=== PATIENT | female | born 1980 | race African-American/Black ===

== ENCOUNTER 2020-05-06 08:50 | Outpatient (REF) | payer OTHER, SELFPAY ==
[2020-05-06 10:21] LABS: MANUAL DIFF FLAG NO
[2020-05-06 10:45] LABS: Basophils Absolute Auto 0.1 X10*3/uL (0.0-0.2); Basophils Percent Auto 0.7 % (0-2); Eosinophils Absolute Auto 0.1 X10*3/uL (0.0-0.4); Eosinophils Percent Auto 1.6 % (0-4); Hematocrit 38.5 % (37-47); Imm Gran Abs Auto 0.02 X10*3/uL (0.00-0.03); Imm Gran Pct Auto 0.2 % (0.0-0.4); Lymphocytes Absolute Auto 1.6 X10*3/uL (1.2-4.9); Lymphocytes Percent Auto 18.3 % (20-40); Mean Corpuscular HGB Conc 33.8 g/dl (31.0-35.0); Mean Corpuscular Hemoglobin 28.7 pg (27.0-33.0); Mean Platelet Volume 12.2 fL (9.4-12.3); Monocytes Absolute Auto 0.4 X10*3/uL (0.1-1.2); Neutrophils Absolute Auto 6.6 X10*3/uL (2.0-8.3); Neutrophils Percent Auto 75.2 % (45-73); Platelet Count 256 X10*3/uL (160-400); Red Blood Count 4.53 X10*6/uL (4.20-5.50); Red Cell Distribution Width 13.3 % (11.0-16.0); White Blood Count 8.8 X10*3/uL (4.8-10.8)
[2020-05-06 11:10] LABS: Estimated Average Glucose 312 mg/dL; Hemoglobin A1c % 12.5 %
[2020-05-06 11:18] LABS: Anion Gap 14 (12-20); Carbon Dioxide 24 mmol/L (22-29); Chloride 102 mmol/L (96-108); Potassium 4.7 mmol/l (3.3-5.1); Sodium 135 mmol/L (135-145)
[2020-05-06 11:19] LABS: Alanine Aminotransferase 13 U/L (0-31); Albumin Level 4.2 g/dL (3.5-5.0); Alkaline Phosphatase 144 U/L (39-117); Aspartate Amino Transferase 11 U/L (5-31); Bilirubin Total 0.3 mg/dL (0.0-1.0); Blood Urea Nitrogen 19 mg/dL (9-16); C Reactive Protein 0.18 mg/dL (< or = 0.50); Calcium 9.4 mg/dL (8.4-10.2); Estimated Glomerular Filt Rate 60; Lipase 17 U/L (8-78); Total Protein 7.4 g/dL (6.5-8.0)
[2020-05-06 11:39] LABS: Free T4 (Free Thyroxine) 0.87 ng/dL (0.71-1.85)
[2020-05-06 11:50] LABS: Glucose Fasting 473 mg/dL (60-99)
[2020-05-06 12:17] LABS: Vitamin B12 806 pg/mL (200-900)
[2020-05-09 20:11] LABS: Glutamic acid decarboxylase Ab <5 IU/mL (<5)
== END 2020-05-06 08:51 | disposition home or self-care (01) ==
LOC: HO.10HDL 08:50
PROVIDERS: Visit Provider Internal Medicine
DX: R63.4 Abnormal weight loss (principal); E11.9 Type 2 diabetes mellitus without complications; M79.7 Fibromyalgia; R25.1 Tremor, unspecified
CPT/HCPCS: 36415; 80053; 82607; 83036; 83690; 84439; 85025; 86140; 86341

== ENCOUNTER 2020-06-26 11:17 | Emergency (ER) | payer OTHER, SELFPAY ==
[2020-06-26] VITALS (13 sets, daily range): BP systolic 75–121; BP diastolic 40–80; PULSE 69–89; RESP 14–18; TEMP 36.9–37.2; O2SAT 95–100; BMI 26.6
--- NOTE | 2020-06-26 11:33 | ECG_ITS ---
Test Reason : DIZZY Blood Pressure : / mmHG Vent. Rate : 070 BPM Atrial Rate : 070 BPM P-R Int : 142 ms QRS Dur : 070 ms QT Int : 388 ms P-R-T Axes : 067 069 072 degrees QTc Int : 419 ms Normal sinus rhythm Normal ECG When compared with ECG of 15-DEC-2018 13:06, Nonspecific T wave abnormality no longer evident in Inferior leads Referred By: Nancy Traylor Electronically Signed By:GABRIELLA NEGRON
--- NOTE | 2020-06-26 11:34 | XR_ITS ---
EXAMINATION: XR CHEST CLINICAL INFORMATION: Weakness. COMPARISON: None TECHNIQUE: Frontal view of the chest was obtained. FINDINGS: No significant abnormality is noted involving the heart, lungs, mediastinum, bony thorax or soft tissues. XR/XR chest 1V IMPRESSION: Unremarkable chest examination.
--- NOTE | 2020-06-26 11:34 | ED.DIZZY ---
HPI - Dizziness General Chief Complaint: Dizziness Stated Complaint: LOW BLOOD PRESSURE Time Seen by Provider: 06/26/20 11:33 Source: patient Mode of arrival: ambulatory Limitations: no limitations History of Present Illness MD elicited complaint: dizziness, near syncope and other (BP at home 84 at PCP 60/40) Pertinent past history: other (hx of heavy menstrual bleeding) Onset (ago): hour(s) (few) Timing: gradual onset and intermittent Severity: moderate Description: lightheadedness Exacerbating factors: change in body position Relieving factors: remaining still Associated symptoms: weakness and other (headache) Related Data Previous Rx's Medication Instructions Recorded [id number]-[id number] 2 tab PO Q6H PRN #14 tab 06/26/20 cyclobenzaprine 10 mg PO TID PRN #14 tab 06/26/20 ondansetron 4 mg PO Q8H PRN #20 tab 06/26/20 Allergies Allergy/AdvReac Type Severity Reaction Status Date / Time gabapentin [GABAPENTIN] Allergy Severe DYSURIA Unverified 04/02/20 16:50 topiramate [From TOPAMAX] Allergy Severe AUDITORY Unverified 04/02/20 16:50 HALLUCINATIONS amitriptyline Allergy Unknown Unknown Verified 04/29/20 11:08 FentaNYL HCl Allergy Unknown Unknown Uncoded 04/29/20 11:08 NSAIDS Allergy Unknown Unknown Uncoded 04/29/20 11:08 Review of Systems Review of Systems: Constitutional : No Fever, No Chills, No Fatigue ENT/Mouth : No sore throat, No Rhinorrhea Eyes: No Eye Pain, No Swelling, No Redness Cardiovascular : No Chest Pain, No SOB, No Dyspnea on Exertion Respiratory : No Cough, No Sputum Gastrointestinal : No Nausea, No Vomiting, No Diarrhea, No abdominal Pain Genitourinary : No Dysuria, No Urinary Frequency, No Hematuria, Musculoskeletal : No joint pain, No Myalgias, No Joint Swelling Skin : No Skin Lesions, No rash Neuro : No Weakness, No Numbness, pos Dizziness, positive Headache Psych : No Anxiety/Panic, No Depression Heme/Lymph: No Bruising, No Bleeding,No Lymphadenopathy Endocrine : No Polyuria, No Polydipsia All other systems reviewed and are negative PMFSH Past Medical History Attestation statement: The following information was validated with the patient. Medical History Diabetes mellitus type 2, controlled Gastroparesis Migraine Neuropathy PVC (premature ventricular contraction) Tachycardia Surgical History History of appendectomy History of section History of inguinal hernia repair Family History Family History (Updated 04/29/20 @ 11:10 by INGA Quinteros) Mother History of hypertension Paternal Grandmother History of ovarian cancer Social History Social History Alcohol intake: never Smoking Status: Never smoker Use of substances other than those prescribed or required for medical reasons: Yes Substance Use Type: Marijuana Substance Use Frequency: Daily Last Used Substance: Days (ago) Advance Directives: No Advance Directives Information Provided: No Physical Exam Vital Signs: Vital Signs: Last Vital Signs Temp 98.5 F 06/26/20 15:33 Pulse 69 06/26/20 16:00 Resp 16 06/26/20 16:22 BP 104/64 06/26/20 16:00 Pulse Ox 98 06/26/20 16:00 Body Mass Index 26.6 Appearance: Alert. Oriented X3. No acute distress. Eyes: Pupils equal, round and reactive to light. ENT: Pharynx normal. Neck: Normal inspection. Neck supple. CVS: Normal heart rate and rhythm. Pulses normal. Respiratory: No respiratory distress. Breath sounds normal. Abdomen: Soft and non-tender. Skin: Skin warm and dry. pale skin color. Normal skin turgor. Extremities: No lower extremity edema. No calf ttp Neuro: Oriented X 3. No motor deficit. No sensory deficit. Course Course Course Narrative: still c/o slight headache and dizziness, CT head ordered, PO medications patient c/o headache has had headaches before at this time will give reglan/benadryl/morphine and reassess, seems like it could be a migraine no fevers, no meningeal signs to suggest meningitis patient feeling better at this time, if improved with treatments anticipate DC home signed out to Dr. Rodriguez pending improvement Procedures EJ/Peripheral Line Neck R: Time Out Performed: Yes Skin Cleansed in Sterile Fashion: Yes Size (gauge): 18 IV Secured and Dressing Applied: Yes Patient Tolerated Procedure: well MDM - Dizziness MDM Narrative Medical decision making narrative: 39 yo female with DM here with dizziness and low BPs at home, reports good PO intake, recent heavy period also felt some brief CP she is PERC negative - will need labs, IVF, ortho VS, ekg, troponin, normal neuro exam, dispo pe results and findings. Lab Data Result diagrams: 06/26/20 12:34 06/26/20 12:34 Labs: Lab Results 06/26/20 06/26/20 06/26/20 Range/Units 12:28 12:34 12:34 WBC 13.7 H (4.8-10.8) X10*3/uL RBC 4.12 L (4.20-5.50) X10*6/uL Hgb 11.9 L (12.0-16.0) g/dl Hct 34.8 L (37-47) % MCV 84.5 (80-98) fL MCH 28.9 (27.0-33.0) pg MCHC 34.2 (31.0-35.0) g/dl RDW 13.9 (11.0-16.0) % Plt Count 290 (160-400) X10*3/uL MPV 9.8 (9.4-12.3) fL Immature Gran % (Auto) 0.4 (0.0-0.4) % Neut % (Auto) 81.3 H (45-73) % Lymph % (Auto) 13.8 L (20-40) % [place] % (Auto) 4.1 (2-11) % Eos % (Auto) 0.1 (0-4) % Baso % (Auto) 0.3 (0-2) % Lymph # (Auto) 1.9 (1.2-4.9) X10*3/uL [place] # (Auto) 0.6 (0.1-1.2) X10*3/uL Eos # (Auto) 0.0 (0.0-0.4) X10*3/uL Baso # (Auto) 0.0 (0.0-0.2) X10*3/uL Abs Immat Gran (auto) 0.05 H (0.00-0.03) X10*3/uL Absolute Neuts (auto) 11.2 H (2.0-8.3) X10*3/uL Absolute Nucleated RBC 0.000 (0.0-0.012) X10*3/uL Nucleated RBC % (auto) 0.0 (0.0-0.2) /100WBC Hold Blue Top Sodium 136 (135-145) mmol/L Potassium 4.6 (3.3-5.1) mmol/l Chloride 104 (96-108) mmol/L Carbon Dioxide 25 (22-29) mmol/L Anion Gap 12 (12-20) BUN 12 (9-16) mg/dL Creatinine 0.75 (0.5-1.4) mg/dL Estim Creat Clear Calc 89.8 Estimated GFR > 60 POC Glucose 82 (60-115) mg/dL Random Glucose 70 (60-115) mg/dL Lactic Acid (0.5-2.0) mmol/L Calcium 9.2 (8.4-10.2) mg/dL Magnesium (1.6-2.6) mg/dL Total Bilirubin (0.0-1.0) mg/dL Direct Bilirubin (0.0-0.5) mg/dL AST (5-31) U/L ALT (0-31) U/L Alkaline Phosphatase (39-117) U/L Troponin I High Sens (<3.5-17.0) ng/L Total Protein (6.5-8.0) g/dL Albumin (3.5-5.0) g/dL Lipase (8-78) U/L Urine Color Urine Appearance Urine pH (5.0-8.0) Ur Specific [place] (1.005-1.025) Urine Protein (NEG-TRACE) MG/DL Urine Glucose (UA) (NEG) MG/DL Urine Ketones (NEG) MG/DL Urine Blood (NEG) Urine Nitrite (NEG) Ur Leukocyte Esterase (NEG) Urine RBC (0) /HPF Urine WBC (0-4) /HPF Ur Squamous Epith Cells /LPF Urine Bacteria /LPF Urine Test (NEGATIVE) 06/26/20 06/26/20 06/26/20 Range/Units 12:34 12:34 12:34 WBC (4.8-10.8) X10*3/uL RBC (4.20-5.50) X10*6/uL Hgb (12.0-16.0) g/dl Hct (37-47) % MCV (80-98) fL MCH (27.0-33.0) pg MCHC (31.0-35.0) g/dl RDW (11.0-16.0) % Plt Count (160-400) X10*3/uL MPV (9.4-12.3) fL Immature Gran % (Auto) (0.0-0.4) % Neut % (Auto) (45-73) % Lymph % (Auto) (20-40) % [place] % (Auto) (2-11) % Eos % (Auto) (0-4) % Baso % (Auto) (0-2) % Lymph # (Auto) (1.2-4.9) X10*3/uL [place] # (Auto) (0.1-1.2) X10*3/uL Eos # (Auto) (0.0-0.4) X10*3/uL Baso # (Auto) (0.0-0.2) X10*3/uL Abs Immat Gran (auto) (0.00-0.03) X10*3/uL Absolute Neuts (auto) (2.0-8.3) X10*3/uL Absolute Nucleated RBC (0.0-0.012) X10*3/uL Nucleated RBC % (auto) (0.0-0.2) /100WBC Hold Blue Top SEE NOTE Sodium (135-145) mmol/L Potassium (3.3-5.1) mmol/l Chloride (96-108) mmol/L Carbon Dioxide (22-29) mmol/L Anion Gap (12-20) BUN (9-16) mg/dL Creatinine (0.5-1.4) mg/dL Estim Creat Clear Calc Estimated GFR POC Glucose (60-115) mg/dL Random Glucose (60-115) mg/dL Lactic Acid 1.0 (0.5-2.0) mmol/L Calcium (8.4-10.2) mg/dL Magnesium 2.0 (1.6-2.6) mg/dL Total Bilirubin 0.6 (0.0-1.0) mg/dL Direct Bilirubin 0.2 (0.0-0.5) mg/dL AST 12 (5-31) U/L ALT 13 (0-31) U/L Alkaline Phosphatase 85 D (39-117) U/L Troponin I High Sens (<3.5-17.0) ng/L Total Protein 6.9 (6.5-8.0) g/dL Albumin 4.0 (3.5-5.0) g/dL Lipase 9 (8-78) U/L Urine Color Urine Appearance Urine pH (5.0-8.0) Ur Specific [place] (1.005-1.025) Urine Protein (NEG-TRACE) MG/DL Urine Glucose (UA) (NEG) MG/DL Urine Ketones (NEG) MG/DL Urine Blood (NEG) Urine Nitrite (NEG) Ur Leukocyte Esterase (NEG) Urine RBC (0) /HPF Urine WBC (0-4) /HPF Ur Squamous Epith Cells /LPF Urine Bacteria /LPF Urine Test (NEGATIVE) 06/26/20 06/26/20 06/26/20 Range/Units 12:34 13:46 13:46 WBC (4.8-10.8) X10*3/uL RBC (4.20-5.50) X10*6/uL Hgb (12.0-16.0) g/dl Hct (37-47) % MCV (80-98) fL MCH (27.0-33.0) pg MCHC (31.0-35.0) g/dl RDW (11.0-16.0) % Plt Count (160-400) X10*3/uL MPV (9.4-12.3) fL Immature Gran % (Auto) (0.0-0.4) % Neut % (Auto) (45-73) % Lymph % (Auto) (20-40) % [place] % (Auto) (2-11) % Eos % (Auto) (0-4) % Baso % (Auto) (0-2) % Lymph # (Auto) (1.2-4.9) X10*3/uL [place] # (Auto) (0.1-1.2) X10*3/uL Eos # (Auto) (0.0-0.4) X10*3/uL Baso # (Auto) (0.0-0.2) X10*3/uL Abs Immat Gran (auto) (0.00-0.03) X10*3/uL Absolute Neuts (auto) (2.0-8.3) X10*3/uL Absolute Nucleated RBC (0.0-0.012) X10*3/uL Nucleated RBC % (auto) (0.0-0.2) /100WBC Hold Blue Top Sodium (135-145) mmol/L Potassium (3.3-5.1) mmol/l Chloride (96-108) mmol/L Carbon Dioxide (22-29) mmol/L Anion Gap (12-20) BUN (9-16) mg/dL Creatinine (0.5-1.4) mg/dL Estim Creat Clear Calc Estimated GFR POC Glucose (60-115) mg/dL Random Glucose (60-115) mg/dL Lactic Acid (0.5-2.0) mmol/L Calcium (8.4-10.2) mg/dL Magnesium (1.6-2.6) mg/dL Total Bilirubin (0.0-1.0) mg/dL Direct Bilirubin (0.0-0.5) mg/dL AST (5-31) U/L ALT (0-31) U/L Alkaline Phosphatase (39-117) U/L Troponin I High Sens < 3.5 (<3.5-17.0) ng/L Total Protein (6.5-8.0) g/dL Albumin (3.5-5.0) g/dL Lipase (8-78) U/L Urine Color YELLOW Urine Appearance CLEAR Urine pH 7.0 (5.0-8.0) Ur Specific [place] <= 1.005 (1.005-1.025) Urine Protein NEG (NEG-TRACE) MG/DL Urine Glucose (UA) >=1000 H (NEG) MG/DL Urine Ketones NEG (NEG) MG/DL Urine Blood NEG (NEG) Urine Nitrite NEG (NEG) Ur Leukocyte Esterase NEG (NEG) Urine RBC 0 (0) /HPF Urine WBC 0-2 (0-4) /HPF Ur Squamous Epith Cells TRACE /LPF Urine Bacteria TRACE /LPF Urine Test NEGATIVE (NEGATIVE) ECG Data Attestation: I personally reviewed and interpreted this ECG as follows: ECG interpretation date: 06/26/20 ECG interpretation time: 12:40 Interpretation: Rate: 70 Rhythm: NSR [place]: normal Normal P waves. Normal JAMA. Normal QRS complex. ST T wave : normal , no TOM qTC: normal prior studies: no acute ischemia The study has been interpreted contemporaneously by me. . Discharge Plan Discharge Clinical Impression: Orthostatic hypotension Migraine Qualifiers: Migraine type: unspecified Status migrainosus presence: without status migrainosus Intractability: not intractable Qualified Code(s): G43.909 - Migraine, unspecified, not intractable, without status migrainosus Instructions: Acute Headache (ED), Hypotension (ED) Additional Instructions: return to ED for any worsening symptoms or concerns Prescriptions: New cyclobenzaprine 10 mg tablet 10 mg PO TID PRN (Reason: muscle spasm) Qty: 14 RF: 0 [id number]-bddfnefyygany-kfdl 50-325-40 mg tablet 2 tab PO Q6H PRN (Reason: pain) Qty: 14 RF: 0 ondansetron 4 mg tablet,disintegrating 4 mg PO Q8H PRN (Reason: nausea and vomiting) Qty: 20 RF: 0 Referrals: Francis Jasso MD [Primary Care Provider] - 2 days (Monday) Stand Alone Forms: Work/School Release
[2020-06-26] MEDS: 0.9 % Sodium Chloride 1,000 ML 999 ML IVCONT ×4 (12:36→18:39)
--- NOTE | 2020-06-26 12:37 | PC.NURSE ---
Delayed bolus administration r/t difficult to obtain IV access. R. ANDERSON placed by provider.
[2020-06-26 12:41] LABS: MANUAL DIFF FLAG NO
[2020-06-26 12:42] LABS: Basophils Percent Auto 0.3 % (0-2); Eosinophils Percent Auto 0.1 % (0-4); Hematocrit 34.8 % (37-47); Hemoglobin 11.9 g/dl (12.0-16.0); Imm Gran Abs Auto 0.05 X10*3/uL (0.00-0.03); Imm Gran Pct Auto 0.4 % (0.0-0.4); Lymphocytes Absolute Auto 1.9 X10*3/uL (1.2-4.9); Lymphocytes Percent Auto 13.8 % (20-40); Mean Corpuscular HGB Conc 34.2 g/dl (31.0-35.0); Mean Corpuscular Hemoglobin 28.9 pg (27.0-33.0); Mean Corpuscular Volume 84.5 fL (80-98); Mean Platelet Volume 9.8 fL (9.4-12.3); Monocytes Absolute Auto 0.6 X10*3/uL (0.1-1.2); Monocytes Percent Auto 4.1 % (2-11); Neutrophils Absolute Auto 11.2 X10*3/uL (2.0-8.3); Neutrophils Percent Auto 81.3 % (45-73); Platelet Count 290 X10*3/uL (160-400); Red Blood Count 4.12 X10*6/uL (4.20-5.50); Red Cell Distribution Width 13.9 % (11.0-16.0); White Blood Count 13.7 X10*3/uL (4.8-10.8)
[2020-06-26 12:45] LABS: Glucose, Whole Blood 82 mg/dL (60-115)
[2020-06-26 13:05] LABS: Anion Gap 12 (12-20); Blood Urea Nitrogen 12 mg/dL (9-16); Calcium 9.2 mg/dL (8.4-10.2); Carbon Dioxide 25 mmol/L (22-29); Chloride 104 mmol/L (96-108); Creatinine Clr Calc Pharmacy 89.8; Estimated Glomerular Filt Rate > 60; Glucose Random 70 mg/dL (60-115); Potassium 4.6 mmol/l (3.3-5.1); Sodium 136 mmol/L (135-145)
[2020-06-26 13:06] LABS: Alanine Aminotransferase 13 U/L (0-31); Alkaline Phosphatase 85 U/L (39-117); Aspartate Amino Transferase 12 U/L (5-31); Bilirubin Direct 0.2 mg/dL (0.0-0.5); Bilirubin Total 0.6 mg/dL (0.0-1.0); Lipase 9 U/L (8-78); Total Protein 6.9 g/dL (6.5-8.0)
[2020-06-26 13:13] LABS: Troponin-I High Sensitivity < 3.5 ng/L (<3.5-17.0)
[2020-06-26 13:55] LABS: Glucose Urine UA >=1000 MG/DL (NEG); Leukocyte Esterase Urine NEG (NEG); Nitrite Urine NEG (NEG); Specific Gravity - Urine <= 1.005 (1.005-1.025); Urine Blood NEG (NEG); Urine Ketones NEG (NEG); Urine Protein NEG (NEG-TRACE)
[2020-06-26 13:56] LABS: Appearance Urine CLEAR; Color Urine YELLOW
[2020-06-26 13:57] LABS: UPreg QC Valid YES; Urine Pregnancy NEGATIVE (NEGATIVE)
[2020-06-26 14:18] LABS: Bacteria Urine TRACE /LPF; RBC Urine 0 /HPF (0); Squamous Epithelial Cell Urine TRACE /LPF; WBC Urine 0-2 /HPF (0-4)
--- NOTE | 2020-06-26 14:41 | CT_ITS ---
EXAMINATION: CT BRAIN WITHOUT CONTRAST. CLINICAL INFORMATION: Headache and dizziness. COMPARISON: None TECHNIQUE: 5 mm thin and axial and reformatted 2 mm thin sagittal and coronal images of brain were obtained. FINDINGS: There is no acute intra-axial, extra-axial bleed, masses or midline shift. There is no acute infarction in evolution. The lateral ventricles are symmetrical in size and configuration. No evidence of ventricle megaly. Bone windows reveal no calvarial abnormality. Bilateral paranasal sinuses and mastoid air cells are well aerated. No scalp soft tissue swelling seen. CT/CT head/brain wo con IMPRESSION: No acute intracranial process seen.
[2020-06-26] MEDS: Meclizine HCl 25 MG TABLET PO (14:47)
[2020-06-26] MEDS: Acetaminophen 325 MG TABLET 650 MG PO (14:47)
--- NOTE | 2020-06-26 14:48 | PC.NURSE ---
Repeat orthos completed and improved however pt states continues headache/dizziness. New orders for Meclizine, APAP and CT scan
[2020-06-26] MEDS: Morphine Sulfate 4 MG/ML CARTRIDGE 2 MG IVPUSH (16:22)
[2020-06-26] MEDS: Metoclopramide HCl 10 MG/2 ML VIAL 5 MG IVPUSH (16:24)
[2020-06-26] MEDS: diphenhydrAMINE HCL 50 MG/ML VIAL 25 MG IVPUSH (16:24)
--- NOTE | 2020-06-26 16:27 | PC.NURSE ---
Pt continues with headache, states h/o migraines with needing er admit, meds given as ordered
[2020-06-26 19:23] LABS: Influenza A PCR NEGATIVE (Negative); Influenza B PCR NEGATIVE (Negative); Resp Syncy Virus RNA Qual PCR NEGATIVE (Negative); SARS COV2 PCR INHOUSE NEGATIVE (Negative)
[2020-06-26 19:32] LABS: Lactic Acid 0.9 mmol/L (0.5-2.0)
== END 2020-06-26 20:15 | disposition home or self-care (01) ==
PROVIDERS: Internal Medicine; Emergency Provider Emergency Medicine; PCP Internal Medicine
DX: I95.1 Orthostatic hypotension (principal); G43.909 Migraine, unspecified, not intractable, without status migrainosus; R42 Dizziness and giddiness; F12.90 Cannabis use, unspecified, uncomplicated; Z79.899 Other long term (current) drug therapy; Z20.828 Contact with and (suspected) exposure to other viral communicable diseases
CPT/HCPCS: 0241U; 36415; 70450; 71045; 80048; 80076; 81001; 81025; 82947; 83605; 83690; 83735; 84484; 85025; 87040; 93005; 96361; 96374; 96375; 99285; J1200; J2270; J2765

== ENCOUNTER 2021-02-11 14:52 | Emergency (ER) | payer OTHER, SELFPAY ==
--- NOTE | ~2021-02-11 | CT_ITS ---
EXAMINATION: CT HEAD WITHOUT CONTRAST CT CERVICAL SPINE WITHOUT CONTRAST CLINICAL INFORMATION: Headache and neck pain following fall. COMPARISON: CT head dated 06/26/2020. Cervical spine CT dated 07/12/2018. TECHNIQUE: Contiguous axial imaging was performed from the skull base to vertex without intravenous administration of contrast. Contiguous axial CT images of the cervical spine were obtained without contrast. Sagittal and coronal reformats were provided and reviewed. This CT examination was performed using dose optimization techniques as appropriate, variously including the following: *Automated exposure control *Adjustment of mA and/or kV according to patient size (this includes techniques or standardized protocols for targeted exams where dose is matched to indication/reason for exam; i.e. extremities or head) *Use of iterative reconstruction technique DLP: 1003 mGy-cm FINDINGS: HEAD: There is no evidence of acute intracranial hemorrhage or territorial infarction. No abnormal mass effect or midline shift is seen. [place] to white matter differentiation is well preserved. No extra-axial fluid collections are identified. The ventricles are normal in size. There is no abnormal attenuation within the brain parenchyma. The osseous structures and soft tissues are normal. The mastoid air cells and visualized portions of the paranasal sinuses are well aerated. CERVICAL SPINE: Mild reversal of the normal cervical lordosis, which may be positional or related to muscular spasm. No acute fracture or subluxation. No loss of vertebral body or intervertebral disc height. Unremarkable facet joints. No lytic or blastic osseous lesion. Unremarkable prevertebral soft tissues. No abnormal soft tissue mass or fluid collection. Thyroid within normal limits. Visualized lung apices are clear. No significant central canal or neural foraminal stenosis. CT/CT cervical spine wo con IMPRESSION: Head: No acute intracranial hemorrhage or mass effect. Cervical Spine: No acute fracture or subluxation. Mild reversal of the normal cervical lordosis, which may be positional or related to muscular spasm.
[2021-02-11 15:05] VITALS: BP 158/77; PULSE 101; RESP 18; TEMP 36.6; O2SAT 98; BMI 25.6
[2021-02-11 17:35] VITALS: BP 134/84; PULSE 66; RESP 16; TEMP 37.1; O2SAT 100
[2021-02-11 17:49] LABS: MANUAL DIFF FLAG NO
[2021-02-11 17:50] LABS: Basophils Absolute Auto 0.1 X10*3/uL (0.0-0.2); Basophils Percent Auto 0.5 % (0-2); Eosinophils Absolute Auto 0.2 X10*3/uL (0.0-0.4); Eosinophils Percent Auto 1.4 % (0-4); Hematocrit 40.1 % (37-47); Hemoglobin 13.2 g/dl (12.0-16.0); Imm Gran Abs Auto 0.04 X10*3/uL (0.00-0.03); Imm Gran Pct Auto 0.4 % (0.0-0.4); Lymphocytes Absolute Auto 1.7 X10*3/uL (1.2-4.9); Lymphocytes Percent Auto 15.8 % (20-40); Mean Corpuscular HGB Conc 32.9 g/dl (31.0-35.0); Mean Corpuscular Hemoglobin 27.1 pg (27.0-33.0); Mean Corpuscular Volume 82.3 fL (80-98); Mean Platelet Volume 10.1 fL (9.4-12.3); Monocytes Absolute Auto 0.4 X10*3/uL (0.1-1.2); Monocytes Percent Auto 3.4 % (2-11); Neutrophils Absolute Auto 8.6 X10*3/uL (2.0-8.3); Neutrophils Percent Auto 78.5 % (45-73); Platelet Count 246 X10*3/uL (160-400); Red Blood Count 4.87 X10*6/uL (4.20-5.50); Red Cell Distribution Width 16.1 % (11.0-16.0)
[2021-02-11 18:20] LABS: Anion Gap 16 (12-20); Blood Urea Nitrogen 14 mg/dL (9-16); Calcium 9.9 mg/dL (8.4-10.2); Carbon Dioxide 24 mmol/L (22-29); Chloride 105 mmol/L (96-108); Creatinine Clr Calc Pharmacy 79.8; Estimated Glomerular Filt Rate > 60; Glucose Random 153 mg/dL (60-115); Sodium 140 mmol/L (135-145)
[2021-02-11 19:04] VITALS: BP 150/87; PULSE 93; RESP 16; O2SAT 97
[2021-02-11] MEDS: Acetaminophen 325 MG TABLET 650 MG PO (19:29)
--- NOTE | 2021-02-11 20:02 | ED_ITS ---
HPI - Fall General Chief Complaint: Fall Stated Complaint: fall chest pain Time Seen by Provider: 02/11/21 17:46 Source: patient Mode of arrival: ambulatory Limitations: no limitations History of Present Illness HPI Narrative: 41-year-old female with history of type 1 diabetes she presents ambulatory via triage with complaint of states he had episode of low blood sugar yesterday where she administer her usual insulin and forgot to eat she subsequently fell to the ground family checked her blood sugar was 47 she was subsequently administered food and glucose improved. States this morning she woke up she has slight headache and neck pain feeling nauseated and sensitivity to light. Otherwise she states she has been eating and drinking well since. Has not had any further hypoglycemic episodes. MD complaint: fall Onset (ago): minute(s) Fall from: standing Fall witnessed: yes, by family Place fall occurred: home Loss of consciousness: yes Prolonged down time: no Symptoms prior to fall: none Location of injury: head Related Data Previous Rx's Medication Instructions Recorded cyclobenzaprine 10 mg tablet 10 mg PO TID PRN #14 tab 06/26/20 ondansetron 4 mg disintegrating 4 mg PO Q8H PRN #20 tab 06/26/20 tablet Allergies Allergy/AdvReac Type Severity Reaction Status Date / Time gabapentin [GABAPENTIN] Allergy Severe DYSURIA Verified 06/26/20 20:13 topiramate [From TOPAMAX] Allergy Severe AUDITORY Verified 06/26/20 20:13 HALLUCINATIONS amitriptyline Allergy Unknown Unknown Verified 06/26/20 20:13 FentaNYL HCl Allergy Unknown Unknown Uncoded 06/26/20 20:13 NSAIDS Allergy Unknown Unknown Uncoded 06/26/20 20:13 Review of Systems Review of Systems: Constitutional: No Weight loss, No Fever, No Chills, No Night Sweats, No Fatigue, No Malaise ENT/Mouth: No Hearing loss, No Ear Pain, No Nasal Congestion, No Sinus Pain, No Hoarseness, No sore throat, No Rhinorrhea, No Swallowing Difficulty Eyes: No Eye Pain, No Swelling, No Redness, No Foreign Body, No Discharge, No Vision Changes Cardiovascular: No Chest Pain, No SOB, No Dyspnea on Exertion, No Orthopnea, No Edema, No Palpitations Respiratory: No Cough, No Sputum, No Wheezing, No Smoke Exposure, No Dyspnea Gastrointestinal: No Nausea, No Vomiting, No Diarrhea, No Constipation, No abdominal Pain, No Hematochezia, No Melena Genitourinary: no irregular bleeding, No Dysuria, No Urinary Frequency, No Hematuria, No Urinary Incontinence, No Urgency, No Flank Pain, No Urinary Flow Changes, No Hesitancy Musculoskeletal: No joint pain, No Myalgias, No Joint Swelling Skin: No Skin Lesions, No rash Neuro: No Weakness, No Numbness, No Paresthesias, No Loss of Consciousness, No Dizziness, + Headache, photosensitivity Psych: No Social Issues Heme/Lymph: No Bruising, No Bleeding,No Lymphadenopathy Endocrine: No Polyuria, No Polydipsia, No Temperature Intolerance [facility] Past Medical History Medical History Diabetes mellitus type 2, controlled Gastroparesis Migraine Neuropathy PVC (premature ventricular contraction) Tachycardia Surgical History History of appendectomy History of section History of inguinal hernia repair Family History Family History (Updated 04/29/20 @ 11:10 by INGA Schultz) Mother History of hypertension Paternal Grandmother History of ovarian cancer Social History Social History Alcohol intake: never Use of substances other than those prescribed or required for medical reasons: No Substance Use Type: Marijuana Advance Directives: No Advance Directives Information Provided: No Patient : No Physical Exam Vital Signs: Vital Signs: Last Vital Signs Temp 98.7 F 02/11/21 17:35 Pulse 93 02/11/21 19:04 Resp 16 02/11/21 19:04 BP 150/87 H 02/11/21 19:04 Pulse Ox 97 02/11/21 19:04 Body Mass Index 25.6 Const: General: cooperative and healthy appearing; No acute distress or i ntoxicated appearing Nutritional Appearance: average body habitus Orientation/consciousness: patient oriented x3 HENMT: Head: Yes normal to inspection Ears: hearing grossly normal bilaterally Eyes: General: appearance normal, both eyes and all related structures Visual Mo: normal visual mo by confrontation Neck: Neck: Yes normal visual inspection, No positive Brudzinski's sign, No positive Kernig's sign and No tender Thyroid: Thyroid normal Chest: Chest palpation & inspection: normal inspection of the chest Resp: Effort & Inspection: normal respiratory effort Cardio: Jugular venous distension: no JVD Rate: regular rate Rhythm: regular rhythm Heart sounds: S1 normal heart sound present and S2 normal heart sound present GI: Inspection: Yes normal to inspection Percussion: Yes normal to percussion Auscultation: normal bowel sounds : General: Yes no CVA tenderness Back/Spine/Pelvis: Back: no CVA tenderness Skin: General skin exam: no rashes or lesions noted Neuro: General: patient oriented x3 Cranial nerves: Yes CN's II-XII intact bilaterally Cognition (Neuro): normal cognition Gait exam (Neuro): Normal gait present Motor exam (neuro): 5/5 motor strength present throughout Sensory Exam: Normal double simultaneous stimulation for sensation Extrem: General: Yes normal to inspection Course Reevaluation(s) Reevaluation #1: Labs overall reassuring, head and neck CT done results still pending patient states she would like to go home and have dinner she feels better. I reviewed the images I did not appreciate any acute findings however advised to wait for radiologist finding states she feels fine she got up dressed herself and would like to go home to have dinner. Reevaluation #2: Images of the head and cervical spine unremarkable. MDM - Fall Lab Data Result diagrams: 02/11/21 17:44 02/11/21 17:44 Labs: Lab Results 02/11/21 02/11/21 Range/Units 17:44 17:44 WBC 11.0 H (4.8-10.8) X10*3/uL RBC 4.87 (4.20-5.50) X10*6/uL Hgb 13.2 (12.0-16.0) g/dl Hct 40.1 (37-47) % MCV 82.3 (80-98) fL MCH 27.1 (27.0-33.0) pg MCHC 32.9 (31.0-35.0) g/dl RDW 16.1 H (11.0-16.0) % Plt Count 246 (160-400) X10*3/uL MPV 10.1 (9.4-12.3) fL Immature Gran % (Auto) 0.4 (0.0-0.4) % Neut % (Auto) 78.5 H (45-73) % Lymph % (Auto) 15.8 L (20-40) % [place] % (Auto) 3.4 (2-11) % Eos % (Auto) 1.4 (0-4) % Baso % (Auto) 0.5 (0-2) % Lymph # (Auto) 1.7 (1.2-4.9) X10*3/uL [place] # (Auto) 0.4 (0.1-1.2) X10*3/uL Eos # (Auto) 0.2 (0.0-0.4) X10*3/uL Baso # (Auto) 0.1 (0.0-0.2) X10*3/uL Abs Immat Gran (auto) 0.04 H (0.00-0.03) X10*3/uL Absolute Neuts (auto) 8.6 H (2.0-8.3) X10*3/uL Absolute Nucleated RBC 0.000 (0.0-0.012) X10*3/uL Nucleated RBC % (auto) 0.0 (0.0-0.2) /100WBC Sodium 140 (135-145) mmol/L Potassium 5.0 (3.3-5.1) mmol/L Chloride 105 (96-108) mmol/L Carbon Dioxide 24 (22-29) mmol/L Anion Gap 16 (12-20) BUN 14 (9-16) mg/dL Creatinine 0.82 (0.5-1.4) mg/dL Estim Creat Clear Calc 79.8 Estimated GFR > 60 Random Glucose 153 H D (60-115) mg/dL Calcium 9.9 D (8.4-10.2) mg/dL Discharge Plan Discharge Clinical Impression: Hypoglycemia, Contusion of scalp, Concussion Patient Disposition: Home, Self-Care Instructions: Concussion (ED), Scalp Contusion in Adults (ED), Hypoglycemia in a Person with Diabetes (ED) Additional Instructions: The CT scan of the head and neck did not show any acute findings Your blood work was all stable Your likely expressing mild symptoms of concussion Supportive care discussed Monitor your blood glucose level closely Return if any concerns or worsening symptoms Follow up with her primary care to discuss Thank you Prescriptions: No Action cyclobenzaprine 10 mg tablet 10 mg PO TID PRN (Reason: muscle spasm) Qty: 14 RF: 0 ondansetron 4 mg tablet,disintegrating 4 mg PO Q8H PRN (Reason: nausea and vomiting) Qty: 20 RF: 0 Referrals: Francis Jasso MD [Primary Care Provider] - 3 days
--- NOTE | 2021-02-11 20:33 | PC.NURSE ---
this RN attempted to d/c patient. patient no longer in room
== END 2021-02-11 20:36 | disposition left against medical advice (07) ==
PROVIDERS: Emergency Provider Emergency Medicine Emergency Medical Services; PCP Internal Medicine
DX: S06.0X9A Concussion with loss of consciousness of unspecified duration, initial encounter (principal); S00.03XA Contusion of scalp, initial encounter; E10.65 Type 1 diabetes mellitus with hyperglycemia; F12.90 Cannabis use, unspecified, uncomplicated; G44.309 Post-traumatic headache, unspecified, not intractable; M54.2 Cervicalgia; W01.10XA Fall on same level from slipping, tripping and stumbling with subsequent striking against unspecified object, initial encounter; Y93.9 Activity, unspecified; Y92.9 Unspecified place or not applicable; Y99.9 Unspecified external cause status; Z79.899 Other long term (current) drug therapy
CPT/HCPCS: 36415; 70450; 72125; 80048; 85025; 99284

== ENCOUNTER 2021-11-22 09:48 | Outpatient (REF) | payer OTHER, SELFPAY ==
--- NOTE | 2021-11-22 10:01 | ECG_ITS ---
Test Reason : ZO1.818 Blood Pressure : / mmHG Vent. Rate : 094 BPM Atrial Rate : 094 BPM P-R Int : 142 ms QRS Dur : 072 ms QT Int : 350 ms P-R-T Axes : 067 055 070 degrees QTc Int : 437 ms Normal sinus rhythm Nonspecific T wave abnormality Abnormal ECG When compared with ECG of 26-JUN-2020 12:36, No significant change was found Referred By: Joelle Fong Electronically Signed By:EMELY STEEN MD
[2021-11-22 10:16] LABS: MANUAL DIFF FLAG NO
[2021-11-22 10:29] LABS: Basophils Percent Auto 0.4 % (0-2); Eosinophils Percent Auto 0.3 % (0-4); Hemoglobin 13.8 g/dl (12.0-16.0); Imm Gran Abs Auto 0.04 X10*3/uL (0.00-0.03); Imm Gran Pct Auto 0.4 % (0.0-0.4); Lymphocytes Absolute Auto 1.6 X10*3/uL (1.2-4.9); Lymphocytes Percent Auto 15.1 % (20-40); Mean Corpuscular HGB Conc 34.5 g/dl (31.0-35.0); Mean Corpuscular Hemoglobin 29.9 pg (27.0-33.0); Mean Corpuscular Volume 86.6 fL (80.0-98.0); Mean Platelet Volume 10.1 fL (9.4-12.3); Monocytes Absolute Auto 0.4 X10*3/uL (0.1-1.2); Neutrophils Absolute Auto 8.6 x10*3/uL (2.0-8.3); Neutrophils Percent Auto 79.8 % (45-73); Platelet Count 300 X10*3/uL (160-400); Red Blood Count 4.62 X10*6/uL (4.20-5.50); White Blood Count 10.7 X10*3/uL (4.8-10.8)
[2021-11-22 10:34] LABS: INTERNATIONAL NORM RATIO 1.2 (0.9-1.1); Prothrombin Time 13.6 SEC (9.9-13.0)
[2021-11-22 10:37] LABS: Partial Thromboplastin Time 33.8 SEC (24.1-38.0)
[2021-11-22 10:45] LABS: Estimated Average Glucose 226 mg/dL; Hemoglobin A1c % 9.5 %
[2021-11-22 11:05] LABS: Alanine Aminotransferase 11 U/L (0-31); Albumin Level 4.6 g/dL (3.5-5.0); Alkaline Phosphatase 95 U/L (39-117); Anion Gap 15 (12-20); Aspartate Amino Transferase 14 U/L (5-31); Bilirubin Total 0.7 mg/dL (0.0-1.0); Blood Urea Nitrogen 7 mg/dL (9-16); Calcium 9.9 mg/dL (8.4-10.2); Carbon Dioxide 26 mmol/L (22-29); Chloride 106 mmol/L (96-108); Estimated Glomerular Filt Rate > 60; Glucose Fasting 90 mg/dL (60-99); Potassium 3.7 mmol/L (3.3-5.1); Sodium 143 mmol/L (135-145)
== END 2021-11-22 09:49 | disposition home or self-care (01) ==
LOC: HO.XRAY 09:48
PROVIDERS: PCP Physician Assistant; Visit Provider Nurse Practitioner Family
DX: Z01.818 Encounter for other preprocedural examination (principal); S12.9XXA Fracture of neck, unspecified, initial encounter; E11.9 Type 2 diabetes mellitus without complications; I10 Essential (primary) hypertension; E78.00 Pure hypercholesterolemia, unspecified
CPT/HCPCS: 36415; 80053; 83036; 85025; 85610; 85730; 93005

== ENCOUNTER → 2022-01-24 14:05 | Outpatient (BNVA) | payer OTHER, SELFPAY | PROVIDERS: PCP Physician Assistant; Visit Provider Internal Medicine | DX: G89.29 Other chronic pain (principal); M79.2 Neuralgia and neuritis, unspecified; S12.100A Unspecified displaced fracture of second cervical vertebra, initial encounter for closed fracture | CPT/HCPCS: 99202 ==

== ENCOUNTER → 2022-05-17 14:05 | Outpatient (BNVA) | payer OTHER, SELFPAY | PROVIDERS: PCP Physician Assistant; Visit Provider Internal Medicine | DX: K31.84 Gastroparesis (principal); E10.649 Type 1 diabetes mellitus with hypoglycemia without coma; R10.13 Epigastric pain; R11.0 Nausea; R14.0 Abdominal distension (gaseous) | CPT/HCPCS: 99202 ==

== ENCOUNTER 2023-02-08 14:08 | Outpatient (AMB) | payer OTHER, SELFPAY ==
[2023-02-08 14:13] VITALS: BP 98/70; PULSE 83; O2SAT 99; BMI 20.7
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
== END 2023-02-08 14:54 | disposition home or self-care (01) ==
PROVIDERS: PCP Physician Assistant; Visit Provider Physician Assistant
DX: E10.42 Type 1 diabetes mellitus with diabetic polyneuropathy (principal); M54.16 Radiculopathy, lumbar region; N99.89 Other postprocedural complications and disorders of genitourinary system; N39.3 Stress incontinence (female) (male)
CPT/HCPCS: 83036; 99214

== ENCOUNTER 2023-05-15 14:25 | Outpatient (AMB) | payer OTHER, SELFPAY ==
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
[2023-05-15 14:29] VITALS: BP 120/70; BMI 21.8
== END 2023-05-15 15:02 | disposition home or self-care (01) ==
PROVIDERS: PCP Physician Assistant; Visit Provider Physician Assistant
DX: E10.9 Type 1 diabetes mellitus without complications (principal)
CPT/HCPCS: 83036; 99214

== ENCOUNTER 2023-06-14 09:14 | Outpatient (REF) | payer OTHER, SELFPAY | END 2023-06-14 09:15 | disposition home or self-care (01) | LOC: HO.HOSX 09:14 | PROVIDERS: Visit Provider Physician Assistant | DX: Z13.89 Encounter for screening for other disorder (principal) ==

== ENCOUNTER 2023-07-13 12:56 | Outpatient (AMB) | payer OTHER, SELFPAY ==
--- NOTE | 2023-07-13 12:51 | MHC.PC.OV ---
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 per policy Accompanied by: Self / Same As Patient Allergies gabapentin [GABAPENTIN] Allergy (Severe, Verified 07/13/23 12:52) DYSURIA topiramate [From TOPAMAX] Allergy (Severe, Verified 07/13/23 12:52) AUDITORY HALLUCINATIONS amitriptyline Allergy (Unknown, Verified 07/13/23 12:52) Unknown pregabalin [From Lyrica] Adverse Reaction (Intermediate, Verified 07/13/23 12:52) mental health issues FentaNYL HCl Allergy (Unknown, Uncoded 07/13/23 12:52) Unknown NSAIDS Allergy (Unknown, Uncoded 07/13/23 12:52) Unknown Tobacco use date assessed: 05/15/23 Dental Screening Dental Screen Date: 07/13/23 Did you have a dental visit in the last 12 months?: No Did you have a dental problem in the last 6 months where you did not have access to dental care?: No Was dental information given to patient?: No HPI Gastroparisis HPI Details Patient is a 42-year-old female being evaluated today via telephone only. She reports over the last 48 hours having an upset stomach and feeling very fatigued. She believes this is her gastroparesis flare-up. Will restart Reglan and antiemetic. She is interested in a few days off work to rest. [facility] Medical History Diabetes mellitus type 2, controlled Gastroparesis Migraine Neuropathy PVC (premature ventricular contraction) Tachycardia Surgical History H/O: hysterectomy History of appendectomy History of inguinal hernia repair History of section Family History Mother History of hypertension Substance use disorder Mental health disorder Paternal Grandmother History of ovarian cancer Social History Housing: House Alcohol intake: never Patient Tobacco Use Status: Former Tobacco user Quit Date: 2010 Tobacco use type: Cigarette e-Cigarette/Vaping Use: Never Used Second Hand Smoke Exposure: Yes Substance Use Type: Marijuana service: No Current occupational status: disabled Cognitive needs: Yes Hearing needs: No Vision needs: No Questionnaire Thrive Questionnaire Date Thrive assessed: 05/15/23 HERMILO-7 AMB Questionnaire HERMILO-7 Date HERMILO - 7 assessed: 02/08/23 Source: Developed by Drs. Bert Moya, Genie Mullins, Cisco Covarrubias and colleagues, with an educational craolynn from [employer]. Review of Systems Const Reports fatigue and Denies headache(s) Eyes Denies loss of vision ENT Denies vertigo, Reports dizziness, Denies headache(s) and Denies sore throat Card Denies chest pain, Denies leg edema and Denies lightheadedness Resp Denies cough, Denies hemoptysis and Denies wheezing GI Denies abdominal pain, Denies melena, Denies constipation, Reports dyspepsia, Reports heartburn, Reports diarrhea, Reports loose stools, Reports nausea and Denies vomiting Denies urinary frequency, Denies dysuria and Denies urinary urgency Musc Denies arthralgias, Denies joint swelling, Denies numbness and Denies tingling Neuro Denies behavioral changes, Denies vertigo, Reports dizziness, Denies headache(s), Denies loss of vision, Denies memory loss, Denies numbness and Denies tingling Psych Denies anxiety, Denies behavioral changes, Denies depression, Denies memory loss and Denies panic attacks Endo Reports fatigue Judah/Lymph Denies easy bleeding and Denies easy bruising Aller/Immun Denies wheezing Physical exam (Primary Care) Tobacco/Smoking Status: Tobacco use Status Tobacco use date assessed 05/15/23 07/13/23 12:55 Patient Tobacco Use Status Former Tobacco user 07/13/23 12:55 Tobacco use type Cigarette 07/13/23 12:55 e-Cigarette/Vaping Use Never Used 07/13/23 12:55 Thrive Assessment: Date of Thrive Assessment Date Thrive assessed 05/15/23 07/13/23 12:55 Telehealth Telehealth Location of provider rendering services: practice address Location of patient: address on file Patient Identification confirmed using: Name, : Yes Telehealth method: voice only Patient verbally consented to treatment: Yes Patient verbally consented to billing insurance company: Yes Patient informed of any privacy concerns related to visit: Yes Minutes spent on Phone/Video with Pt.: 11 Assessment and Plan Assessment & Plan (1) Gastroparesis: Code(s): K31.84 - Gastroparesis Plan: Reports over the last 48 hours having an upset stomach and diarrhea. Reports she feels that this is her gastroparesis she has had in the past. 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 She will make dietary modifications and stay well hydrated. Needed work note to be out of work to rest for the next few days. Medications: Refilled ondansetron 4 mg PO Q8H PRN 20 tabs 0RF nausea and vomiting K31.84 - Gastroparesis metoclopramide HCl 10 mg PO Q6H 30 days PRN 120 tabs 2RF for nausea/vomiting K31.84 - Gastroparesis Coding Level of Care Code Est Pt Level 3 (01914) Diagnoses Gastroparesis K31.84
== END 2023-07-13 15:30 | disposition home or self-care (01) ==
LOC: HO.HMGH 12:56
PROVIDERS: PCP Physician Assistant; Visit Provider Physician Assistant
DX: K31.84 Gastroparesis (principal)
CPT/HCPCS: 99213

== ENCOUNTER 2023-10-18 10:49 | Outpatient (AMB) | payer OTHER, SELFPAY ==
[2023-10-18 10:51] VITALS: BP 98/72; PULSE 99; RESP 16; O2SAT 100; BMI 22.3
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
== END 2023-10-18 11:54 | disposition home or self-care (01) ==
PROVIDERS: PCP Physician Assistant; Visit Provider Physician Assistant
DX: Z00.00 Encounter for general adult medical examination without abnormal findings (principal); E10.42 Type 1 diabetes mellitus with diabetic polyneuropathy; R07.2 Precordial pain; Z82.49 Family history of ischemic heart disease and other diseases of the circulatory system; Z12.31 Encounter for screening mammogram for malignant neoplasm of breast
CPT/HCPCS: 83036; 99396

== ENCOUNTER → 2023-10-27 10:08 | Outpatient (REF) | payer OTHER, SELFPAY ==
--- NOTE | 2023-10-27 10:11 | CA_ITS ---
Acquisition Time: 2023-10-27 10:18:56 Total Exercise Time: 00:03:21 Test Indications: TACHYCARDIA, PVC'S Medications: Protocol: LSAHELL Max HR: 130 BPM 73% of Pred: 177 BPM Max BP: 130/070 mmHG Max Work Load: 5.0 METS Exercise stress test exercise 3 min 21 sec of [place]hell protocol achieivng 72% MPHR, with request to stop due to dizziness and chest pain, with mild to moderate SOB, 4/10 chest tightness which quickly resovled with rest, with frequent isolated PVCs, with normotensive response to exercise, with nondiagnoisitic EKGs. Breathing and chest pain resolved with rest. Test reviewed with Dr. Manley. Referred By: Asher Ridley Overread By: Marlena Samayoa
== END ==
LOC: HO.CARD 10:08
PROVIDERS: PCP Physician Assistant; Visit Provider Physician Assistant
DX: R07.2 Precordial pain (principal)
CPT/HCPCS: 93017

== ENCOUNTER → 2023-10-27 10:11 | Outpatient (BNV) | payer OTHER, SELFPAY | PROVIDERS: PCP Physician Assistant; Visit Provider Nurse Practitioner | DX: R06.02 Shortness of breath (principal); R07.9 Chest pain, unspecified; I49.3 Ventricular premature depolarization | CPT/HCPCS: 93016; 93018 ==

== ENCOUNTER 2024-07-29 10:31 | Outpatient (AMB) | payer OTHER, SELFPAY ==
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
[2024-07-29 10:48] VITALS: BP 154/90; PULSE 98; TEMP 36.5; O2SAT 97; BMI 21.2
== END 2024-07-29 12:19 | disposition home or self-care (01) ==
PROVIDERS: PCP Physician Assistant; Visit Provider Physician Assistant
DX: E10.649 Type 1 diabetes mellitus with hypoglycemia without coma (principal); N15.9 Renal tubulo-interstitial disease, unspecified; Z23 Encounter for immunization; E10.42 Type 1 diabetes mellitus with diabetic polyneuropathy

== ENCOUNTER → 2024-07-29 10:31 | Outpatient (BNVA) | payer OTHER, SELFPAY | PROVIDERS: PCP Physician Assistant; Visit Provider Physician Assistant | DX: Z23 Encounter for immunization (principal); E10.42 Type 1 diabetes mellitus with diabetic polyneuropathy; L40.9 Psoriasis, unspecified; R33.9 Retention of urine, unspecified | CPT/HCPCS: 81003; 83036; 90471; 90656; 96127; 99212 ==

== ENCOUNTER 2024-08-09 08:48 | Outpatient (REF) | payer OTHER, SELFPAY ==
[2024-08-09 10:47] LABS: Hematocrit 36.9 % (37.0-47.0); Hemoglobin 12.1 g/dl (12.0-16.0); Mean Corpuscular HGB Conc 32.8 g/dl (31.0-35.0); Mean Corpuscular Hemoglobin 28.1 pg (27.0-33.0); Mean Corpuscular Volume 85.8 fL (80.0-98.0); Mean Platelet Volume 10.4 fL (9.4-12.3); Platelet Count 337 X10*3/uL (160-400); Red Cell Distribution Width 15.5 % (11.0-16.0)
[2024-08-09 11:09] LABS: Hemoglobin A1C 426.7693 umol/L; Hemoglobin A1c % > 14.0 % (<6.0); Total Hemoglobin (HGBA1C) 3166.6463 umol/L
[2024-08-09 11:47] LABS: Creatinine Urine 32.79 mg/dL; Microalbum/Creatinine Ratio Ur 18.2 ug/mg cr (<30)
[2024-08-09 13:13] LABS: Thyroid Stimulating Hormone 0.41 uIU/mL (0.32-4.0)
[2024-08-09 13:30] LABS: Alanine Aminotransferase 26 U/L (0-31); Albumin Level 3.8 g/dL (3.5-5.0); Anion Gap 11 (12-20); Aspartate Amino Transferase 21 U/L (5-31); Bilirubin Total 0.4 mg/dL (0.0-1.0); Blood Urea Nitrogen 18 mg/dL (9-16); Calcium 9.3 mg/dL (8.4-10.2); Carbon Dioxide 28 mmol/L (22-29); Chloride 105 mmol/L (96-108); Cholesterol 195 mg/dL (<200); Estimated Glomerular Filt Rate > 60; Glucose Fasting 290 mg/dL (60-99); HDL Cholesterol 57 mg/dL (>40); LDL Cholesterol Calculated 126 mg/dL (<100); Potassium 4.8 mmol/L (3.3-5.1); Sodium 139 mmol/L (135-145); Total Protein 7.9 g/dL (6.5-8.0); Triglycerides 63 mg/dL (<150)
[2024-08-09 14:15] LABS: Alkaline Phosphatase 113 U/L (39-117)
[2024-08-10 10:28] LABS: C Peptide 1.96 ng/mL (0.80-3.85)
[2024-08-12 21:29] LABS: Glutamic acid decarboxylase Ab <5 IU/mL (<5)
[2024-08-14 22:58] LABS: Islet Cell Antibody Screen NEGATIVE (NEGATIVE)
== END 2024-08-09 08:49 | disposition home or self-care (01) ==
LOC: HO.LAB 08:48
PROVIDERS: Absent Provider Physician Assistant; PCP Physician Assistant; Visit Provider Nurse Practitioner Adult Health
DX: E10.649 Type 1 diabetes mellitus with hypoglycemia without coma (principal); E10.42 Type 1 diabetes mellitus with diabetic polyneuropathy; E10.43 Type 1 diabetes mellitus with diabetic autonomic (poly)neuropathy; K31.84 Gastroparesis; Z79.4 Long term (current) use of insulin
CPT/HCPCS: 36415; 80053; 80061; 82043; 82570; 82947; 83036; 84443; 84681; 85027; 86341; 99202

== ENCOUNTER 2024-10-16 10:05 | Outpatient (AMB) | payer OTHER, SELFPAY ==
[2024-10-16 10:13] VITALS: BP 100/70; PULSE 82; TEMP 36.4; O2SAT 99; BMI 22.5
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
--- OUTSIDE RECORDS SUMMARY | 2024-10-16 11:39 | XMS_ITS | Clinical Summary ---
Author Organization [facility] Address [address] [place] [address] Phone Care Team Providers Care Motion Picture Commentator Name Role Phone Asher Ridley Primary Care Provider Allergies Active Allergy Reactions Criticality Noted Date Comments Amitriptyline Psychiatric 06/23/2021 Other Reaction(s): Rage 30-APR-2016 06:15:59<$> Divalproex 07/13/2024 Other Reaction(s): Rage 30-APR-2016 06:15:59<$> Fentanyl GI bleeding,Bleeding,Ur inary Issues Low 06/23/2021 Gabapentin 03/12/2021 Other Reaction(s): difficulty urinating Guanfacine 07/13/2024 Hydroxyzine Headache,Unknown High 06/23/2021 worsening headache Ibuprofen Bleeding 03/12/2021 Other Reaction(s): hematuria Nsaids (Non-Steroidal Anti-Inflammatory Drug) 07/13/2024 Pregabalin Psychiatric,Unknown High 06/23/2021 Topiramate Unknown 03/12/2021 Other Reaction(s): Rage ?30-APR-2016 06:15:59<$> hallucinations Medications No known medications Active Problems No known active problems Encounters Date Type Department Care Team Description 10/01/[address] [facility] [address] [place] [phone] Nitin Steele MD Other abnormal findings in urine 09/11/2024 9:52 AM EST - 09/11/2024 11:59 PM EST Hospital Encounter [facility] Xray [address] [place] [phone] Nonobstructive reflux-associated chronic pyelonephritis Discharge Disposition: Home or Self Care 08/30/[address] [facility] [address] [place] [phone] Nitin Steele MD Other abnormal findings in urine 08/14/[address] [facility] [address] [place] [phone] Kanchan Munoz PA Dysuria from Last 3 Months Social History Tobacco Use Types Packs/Day Years Used Date Smoking Tobacco: Unknown Tobacco Cessation:Counseling Given: Not Answered Comments Unknown Sex and Gender Information Value Date Recorded Sex Assigned at Not on file Legal Sex Female 4:48 PM EST Gender Identity Not on file Sexual Orientation Not on file Obstetrics History Last Filed Vital Signs Vital Sign Reading Time Taken Comments Blood Pressure 100/73 07/13/2024 5:09 PM EST Pulse 100 07/13/2024 5:09 PM EST Temperature 37.7 ??C (99.9 ??F) 07/13/2024 5:09 PM ES T Respiratory Rate 18 07/13/2024 5:09 PM EST Oxygen Saturation 95% 07/13/2024 3:53 PM EST Inhaled Oxygen Concentration - - Weight 54.9 kg (121 lb) 07/13/2024 11:25 AM EST Height 157.5 cm (5' 2 ) 07/13/2024 11:25 AM EST Body Mass Index 22.13 07/13/2024 11:25 AM EST Plan of Treatment Health Maintenance Due Date Last Done Comments Breast Cancer Screening 1980 IPV Vaccines (2 of 3 - 4-dose series) 1980 1980 Diabetes: Annual Foot Exam 1990 Diabetes: Annual Retina Eye Exam 1990 Cervical Cancer Screening: Pap Smear 2001 Pneumococcal Vaccine: Pediatrics (0 to 5 Years) and At-Risk Patients (6 to 64 Years) (2 of 2 - PCV) 12/18/2014 12/18/2013 Hepatitis B Vaccines (2 of 3 - 19+ 3-dose series) 06/21/2019 05/24/2019 COVID-19 Vaccine (3 - Pfizer risk series) 12/27/2020 11/29/2020, 11/08/2020 Cholesterol Screening (Lipid Panel) 06/15/2022 Depression Screening 06/15/2022 HIV Screening 06/15/2022 Hepatitis C Screening 06/15/2022 Social Influencers of Health Screening 06/15/2022 Diabetes: Annual Urine Albumin-Creatinine Ratio (uACR) 07/13/2024 Diabetes: Blood Sugar Control Test (HGBA1C) 07/13/2024 DTaP,Tdap,and Td Vaccines (2 - Td or Tdap) 02/19/2025 02/19/2015 Diabetes: Annual GFR (Glomerular Filtration Rate) 07/13/2025 07/13/2024 Influenza Vaccine Completed 07/29/2024, , 08/20/2017, Additional history exists HIB Vaccines Aged Out No longer eligi ble based on patient's age to complete this topic HPV Vaccines Aged Out No longer eligi ble based on patient's age to complete this topic Hepatitis A Vaccines Aged Out No long er eligible based on patient's age to complete this topic MMR Vaccines Aged Out No longer eligi ble based on patient's age to complete this topic Meningococcal ACWY Vaccine Aged Out N o longer eligible based on patient's age to complete this topic Meningococcal B Vacine Aged Out No lo nger eligible based on patient's age to complete this topic RSV Immunization Patients Under 20 months Aged Out No longer eligible based on patient's age to complete this topic Varicella Vaccines Aged Out No longer eligible based on patient's age to complete this topic Procedures Procedure Name Priority Date/Time Associated Diagnosis Comments BACTERIAL IDENTIFICATION AND SUSCEPTIBILITY, AEROBIC Routine 09/30/2024 12:00 AM EDT Other abnormal findings in urine XR CYSTOURETHROGRAM VOIDING Routine 09/11/2024 12:14 PM EST Nonobstructive reflux-associated chronic pyelonephritis BACTERIAL IDENTIFICATION AND SUSCEPTIBILITY, AEROBIC Routine 08/29/2024 12:00 AM EST Other abnormal findings in urine BACTERIAL IDENTIFICATION AND SUSCEPTIBILITY, AEROBIC Routine 08/13/2024 12:00 AM EST Dysuria COMPREHENSIVE METABOLIC PANEL STAT 07/13/2024 2:38 PM EST from Last 3 Months or Most Recently Relevant to Health Maintenance Results * (ABNORMAL) Bacterial identification and susceptibility, aerobic (09/30/2024 12:00 AM EDT) Only the most recent of3 resultswithin the time period is included. Culture, Bacterial ID and Sensitivity Escherichia coli(A) CHRISTIANO 10/02/2024 8:[address] [facility] Other Urine specimen from urethra / Unknown 09/30/2024 10/01/2024 10:06 AM EDT Narrative Organism Antibiotic Method Susceptibility Escherichia coli Amoxicillin/Clavulanate CHRISTIANO 8 ug/ml: Susceptible Escherichia coli Ampicillin/Sulbactam CHRISTIANO 16 ug/ml: Intermediate Escherichia coli Piperacillin/Tazobactam CHRISTIANO <=4 ug/ml: Susceptible Escherichia coli Cefazolin (Urine) CHRISTIANO 4 ug/ml: Susceptible Escherichia coli Cefoxitin CHRISTIANO <=4 ug/ml: Susceptible Escherichia coli Ceftazidime CHRISTIANO <=0.5 ug/ml: Susceptible Escherichia coli Ceftriaxone CHRISTIANO <=0.25 ug/ml: Susceptible Escherichia coli Cefepime CHRISTIANO <=0.12 ug/ml: Susceptible Escherichia coli Meropenem CHRISTIANO <=0.25 ug/ml: Susceptible Escherichia coli Amikacin CHRISTIANO 2 ug/ml: Susceptible Escherichia coli Gentamicin CHRISTIANO <=1 ug/ml: Susceptible Escherichia coli Ciprofloxacin CHRISTIANO 0.5 ug/ml: Intermediate Escherichia coli Levofloxacin CHRISTIANO 1 ug/ml: Intermediate Escherichia coli Nitrofurantoin CHRISTIANO <=16 ug/ml: Susceptible Escherichia coli Trimethoprim/Sulfamethoxazole CHRISTIANO 160 ug/ml: Resistant us Nitin Steele MD LAB MICROBIOLOGY - G ENERAL ORDERABLES Final Result [facility] [address] [place] [address], * XR Cystourethrogram Voiding (09/11/2024 12:14 PM EST) Anatomical Region Laterality Modality Body Radiographic Lynn ging 09/11/2024 12:4 7 PM EST Narrative 09/11/2024 4:48 PM EST VOIDING CYSTOURETHROGRAM COMPARISON: Prior CT abdomen pelvis 05/11/2024 reviewed. HISTORY: Patient is a 44-year-old female with history of hysterectomy, endometriosis, recurrent UTI, pyelonephritis.?reflux. STRAW HAT PRESSER: 1 view of the abdominal radiograph was obtained. Bowel gas pattern is nonobstructive. Multiple surgical clips are noted in the right lower quadrant, indicating prior surgery. Osseous structures are unremarkable. TECHNIQUE: Mccain catheter placed in department by nursing staff. 350 mL of Isovue-300 was filled retrograde into the bladder by gravity under fluoroscopic control. Patient was placed in the AP, RPO, LPO and right and left lateral positions. Once patient began to feel the urge to urinate, the Mccain catheter was removed and patient was instructed to attempt voiding under fluoroscopic control. After multiple attempts, patient was unable to void. Patient was instructed to void in the restroom and immediate post voiding images were obtained. Initial postvoid images demonstrated a still nearly full bladder. Patient was instructed to attempt to void once again and describes great difficulty with this, reports needing to apply manual pressure to her pelvis and bear down forcefully. Second attempt postvoid images demonstrate good evacuation of contrast from the bladder with minimal residual remaining. The urethra was not visualized. At no point was vesicoureteral reflux visualized during this exam. Bladder demonstrates normal contour without defects. FINDINGS: 1. No visualized vesicoureteral reflux. -------- FINAL REPORT -------- Dictated By: Francy Rosenthal Dictated Date: 09/11/2024 12:47 ET Assigned Physician: Levi Kowalski Reviewed and Electronically Signed By: Levi Kowalski Signed Date: 09/11/2024 16:48 ET Workstation ID: [id number] Transcribed By: Self Edit Transcribed Date: 09/11/2024 13:16 ET Resident/PA/VOCATIONAL REHABILITATION SUPERVISOR: Francy Rosenthal Procedure Note Levi Kowalski MD - 09/11/2024 VOIDING CYSTOURETHROGRAM COMPARISON: Prior CT abdomen pelvis 05/11/2024 reviewed. HISTORY: Patient is a 44-year-old female with history of hysterectomy,endometriosis, recurrent UTI, pyelonephritis.?reflux. STRAW HAT PRESSER: 1 view of the abdominal radiograph was obtained. Bowel gas patternis nonobstructive. Multiple surgical clips are noted in the right lowerquadrant, indicating prior surgery. Osseous structures are unremarkable. TECHNIQUE: Mccain catheter placed in department by nursing staff. 350 mL of Isovue-300was filled retrograde into the bladder by gravity under fluoroscopiccontrol. Patient was placed in the AP, RPO, LPO and right and left lateralpositions. Once patient began to feel the urge to urinate, the Foleycatheter was removed and patient was instructed to attempt voiding underfluoroscopic control. After multiple attempts, patient was unable to void.Patient was instructed to void in the restroom and immediate post voidingimages were obtained. Initial postvoid images demonstrated a still nearlyfull bladder. Patient was instructed to attempt to void once again anddescribes great difficulty with this, reports needing to apply manualpressure to her pelvis and bear down forcefully. Second attempt postvoidimages demonstrate good evacuation of contrast from the bladder withminimal residual remaining. The urethra was not visualized. At no pointwas vesicoureteral reflux visualized during this exam. Bladder demonstrates normal contour without defects. FINDINGS: 1. No visualized vesicoureteral reflux. -------- FINAL REPORT -------- Dictated By: Francy Rosenthal Dictated Date: 09/11/2024 12:47 ET Assigned Physician: Levi Kowalski Reviewed and Electronically Signed By: Levi Kowalski Signed Date: 09/11/2024 16:48 ET Workstation ID: [id number] Transcribed By: Self Edit Transcribed Date: 09/11/2024 13:16 ET Resident/PA/VOCATIONAL REHABILITATION SUPERVISOR: Francy Rosenthal Nitin Steele MD IMG FLUOROSCOPY PROC EDURES Final Result * (ABNORMAL) Comprehensive metabolic panel (07/13/2024 2:38 PM EST) Sodium 130(L) 133 - 145 mmol/L LAB CHEMISTRY METHOD 07/13/2024 3:46 PM [facility] Potassium 3.1(L) 3.5 - 5.5 mmol/L LAB CHEMISTRY METHOD 07/13/2024 3:46 PM [facility] Chloride 94(L) 96 - 110 mmol/L LAB CHEMISTRY METHOD 07/13/2024 3:46 PM [facility] CO2 29 21 - 32 mmol/L LAB CHEMISTRY METHOD 07/13/2024 3:46 PM [facility] Anion Gap 7 3 - 11 LAB CHEMISTRY METHOD 07/13/2024 3:46 PM [facility] Glucose 235(H) 70 - 100 mg/dL LAB CHEMISTRY METHOD 07/13/2024 3:46 PM [facility] BUN 11 5 - 25 mg/dL LAB CHEMISTRY METHOD 07/13/2024 3:46 PM [facility] Creatinine 0.89 0.50 - 1.10 mg/dL LAB CHEMISTRY METHOD 07/13/2024 3:46 PM [facility] eGFR 83 >=60 mL/min/1. 73m2 LAB CHEMISTRY METHOD 07/13/2024 3:46 PM [facility] Comment:Calculation based on the??Chronic Kidney Disease Epidemiology Collaboration (CKD-EPI) equation refit??without adjustment for race. BUN/Creatinine Ratio 12.4 LAB CHEMISTRY METHOD 07/13/2024 3:46 PM [facility] Calcium 9.0 8.5 - 10.5 mg/dL LAB CHEMISTRY METHOD 07/13/2024 3:46 PM [facility] AST (SGOT) 17 10 - 42 unit/L LAB CHEMISTRY METHOD 07/13/2024 3:46 PM [facility] ALT (SGPT) 24 10 - 60 unit/L LAB CHEMISTRY METHOD 07/13/2024 3:46 PM [facility] Alkaline Phosphatase 144(H) 42 - 121 unit/L LAB CHEMISTRY METHOD 07/13/2024 3:46 PM [facility] Total Protein 7.7 6.0 - 8.0 g/dL LAB CHEMISTRY METHOD 07/13/2024 3:46 PM [facility] Albumin 3.3 3.2 - 5.0 g/dL LAB CHEMISTRY METHOD 07/13/2024 3:46 PM [facility] Total Bilirubin 0.5 0.0 - 1.4 mg/dL LAB CHEMISTRY METHOD 07/13/2024 3:46 PM [facility] Blood Venous blood specimen / Unknown Venipuncture / Unknown 07/13/2024 2:38 PM EST 07/13/2024 3:17 PM EST us Anastasia VILLARREAL LAB BLOOD ORDERABLES Final Res ult [facility] [address] [place] [address], from Last 3 Months or Most Recently Relevant to Health Maintenance Insurance [facility] [employer] Advance Directives Documents on File Type Date Recorded Patient Ecmo Specialist Expl anation Health Care Decision (hx) 12/10/2020 AD GARCIA DIRECTIVE Health Care Decision (hx) 12/10/2020 AD GARCIA DIRECTIVE Health Care Decision (hx) 12/10/2020 AD GARCIA DIRECTIVE Health Care Decision (hx) 12/10/2020 AD GARCIA DIRECTIVE Health Care Decision (hx) 12/10/2020 AD GARCIA DIRECTIVE Health Care Decision (hx) 12/10/2020 AD GARCIA DIRECTIVE Health Care Decision (hx) 12/10/2020 AD GARCIA DIRECTIVE Health Care Decision (hx) 12/10/2020 AD GARCIA DIRECTIVE Care Teams Motion Picture Commentator Relationship Specialty Start Date End Date Asher Ridley PA PCP - General Physician Swift Tender 08/30/24
--- OUTSIDE RECORDS SUMMARY | 2024-10-16 11:39 | XMS_ITS | Encounter Summary ---
[facility] [place] [address] Support Name Relationship Address Phone Zita Chappell Domestic partner [address] [facility] [address] [place] [address] Care Team Providers Care Java J2Ee Software Engineer Name Role Phone Asher Ridley Primary Care Provider Encounter Details Date Type Department Care Team (Late st Contact Info) Description 08/14/2024 Lab Requisition [facility] [address] [place] [phone] Kanchan Munoz PA [address] [facility] [address] [place] [address] Dysuria Social History Tobacco Use Types Packs/Day Years Used Date Smoking Tobacco: Unknown Comments Unknown Sex and Gender Information Value Date Recorded Sex Assigned at Not on file Legal Sex Female 4:48 PM EST Gender Identity Not on file Sexual Orientation Not on file documented as of this encounter Plan of Treatment Not on file documented as of this encounter Procedures Procedure Name Priority Date/Time Associated Diagnosis Comments BACTERIAL IDENTIFICATION AND SUSCEPTIBILITY, AEROBIC Routine 08/13/2024 12:00 AM EST Dysuria documented in this encounter Results * (ABNORMAL) Bacterial identification and susceptibility, aerobic (08/13/2024 12:00 AM EST) Culture, Bacterial ID and Sensitivity Escherichia coli(A) CHRISTIANO 08/15/2024 8:16 AM EST [facility] Other Urine specimen from urethra / Unknown 08/13/2024 08/14/2024 10:37 AM EST Narrative Organism Antibiotic Method Susceptibility Escherichia coli [...] <=16 ug/ml: Susceptible Escherichia coli Trimethoprim/Sulfamethoxazole CHRISTIANO 80 ug/ml: Resistant us Kanchan VILLARREAL LAB MICROBIOLOGY - GENERAL ORDER THEE Final Result [facility] [address] [place] [address], documented in this encounter Visit Diagnoses Diagnosis Dysuria documented in this encounter Care Teams Java J2Ee Software Engineer Relationship Specialty Start Date End Date Asher Ridley PA PCP - General Physician Process Engineering Intern 08/30/24 documented as of this encounter
--- OUTSIDE RECORDS SUMMARY | 2024-10-16 11:39 | XMS_ITS | Encounter Summary ---
Author Organization [facility] [address] Care Team Providers Care Career And Guidance Counselor Name Role Phone Asher Ridley Primary Care Provider Encounter Details Date Type Department Care Team (Late st Contact Info) Description 08/30/2024 Lab Requisition [facility] [address] [place] [phone] Nitin Steele MD [address] [facility] [address] [place] [address] Other abnormal findings in urine Social History Tobacco Use Types Packs/Day Years [...] Comments BACTERIAL IDENTIFICATION AND SUSCEPTIBILITY, AEROBIC Routine 08/29/2024 12:00 AM EST Other abnormal findings in urine documented in this encounter Results * (ABNORMAL) Bacterial identification and susceptibility, aerobic (08/29/2024 12:00 AM EST) Culture, Bacterial ID and Sensitivity Escherichia coli(A) CHRISTIANO 08/31/2024 8:33 AM EST [facility] Other Urine specimen from urethra / Unknown 08/29/2024 08/30/2024 10:26 AM EST Narrative Organism Antibiotic Method Susceptibility Escherichia coli Amoxicillin/Clavulanate CHRISTIANO 4 ug/ml: Susceptible Escherichia coli Ampicillin/Sulbactam CHRISTIANO 16 ug/ml: Intermediate Escherichia coli Piperacillin/Tazobactam CHRISTIANO 16 ug/ml: Intermediate Escherichia coli Cefazolin (Urine) CHRISTIANO 4 ug/ml: [...] MICROBIOLOGY - G ENERAL ORDERABLES Final Result [facility] [address] [place] [address], [place] [phone] documented in this encounter Visit Diagnoses Diagnosis Other abnormal findings in urine documented in this encounter Care Teams Career And Guidance Counselor Relationship Specialty Start Date End Date Asher Ridley PA PCP - General Physician Graduate Nurse 08/30/24 documented as of this encounter
--- OUTSIDE RECORDS SUMMARY | 2024-10-16 11:39 | XMS_ITS | Encounter Summary ---
[facility] [place] [address] Care Team Providers Care Natural Developer Name Role Phone Asher Ridley Primary Care Provider Encounter Details Date Type Department Care Team (Late st Contact Info) Description 10/01/2024 Lab Requisition [facility] [address] [place] [phone] Nitin tSeele MD [address] [facility] [address] [place] [address] Other abnormal findings in urine Social History [...] AM EDT Other abnormal findings in urine documented in this encounter Results * (ABNORMAL) Bacterial identification and susceptibility, aerobic (09/30/2024 12:00 AM EDT) Culture, Bacterial ID and Sensitivity Escherichia coli(A) CHRISTIANO 10/02/2024 8:40 AM EDT [facility] Other Urine specimen from urethra [...] MICROBIOLOGY - G ENERAL ORDERABLES Final Result [facility] [address] [place] [address], documented in this encounter Visit Diagnoses Diagnosis Other abnormal findings in urine documented in this encounter Care Teams Natural Developer Relationship Specialty Start Date End Date Asher Ridley PA PCP - General Physician Cold Press Operator 08/30/24 documented as of this encounter
== END 2024-10-16 10:38 | disposition home or self-care (01) ==
LOC: HO.HMCH 10:06
PROVIDERS: PCP Physician Assistant; Visit Provider Physician Assistant
DX: E11.69 Type 2 diabetes mellitus with other specified complication (principal); E78.2 Mixed hyperlipidemia; N12 Tubulo-interstitial nephritis, not specified as acute or chronic

== ENCOUNTER → 2024-10-16 10:05 | Outpatient (BNVA) | payer OTHER, SELFPAY | PROVIDERS: PCP Physician Assistant; Visit Provider Physician Assistant | DX: E11.69 Type 2 diabetes mellitus with other specified complication (principal); E78.2 Mixed hyperlipidemia; N12 Tubulo-interstitial nephritis, not specified as acute or chronic | CPT/HCPCS: 83036; 99212 ==

== ENCOUNTER 2025-05-13 13:53 | Outpatient (AMB) | payer OTHER, SELFPAY ==
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
[2025-05-13 14:21] VITALS: BP 132/60; PULSE 81; TEMP 36.2; O2SAT 97; BMI 22.8
--- OUTSIDE RECORDS SUMMARY | 2025-05-13 18:12 | XMS_ITS | Encounter Summary ---
Author Organization [facility] [place] [address] Care Team Providers Care County Program Technician Name Role Phone Asher Ridley Primary Care Provider [phone] Encounter Details Date Type Department Care Team (Late st Contact Info) Description 08/30/2024 Lab Requisition [facility] - Main Lab [address] [place] [id number] Nitin Steele MD [address] [facility] [address] [place] [address] Other abnormal findings in urine Social History [...] Escherichia coli(A) CHRISTIANO 08/31/2024 8:33 AM EST [facility] Other Urine specimen from [...] MICROBIOLOGY - G ENERAL ORDERABLES Final Result [facility] [address] [place] [address], [place] [phone] documented in this encounter Visit Diagnoses Diagnosis Other abnormal findings in urine documented in this encounter Care Teams County Program Technician Relationship Specialty Start Date End Date Asher Ridley PA [address] [place] [address] PCP - General Physician Director Of Preclinical Research 08/30/24 documented as of this encounter
--- OUTSIDE RECORDS SUMMARY | 2025-05-13 18:12 | XMS_ITS | Clinical Summary ---
Author Organization [facility] Address [address] [place] [address] Phone Care Team Providers Care Automotive Engineering Technician Name Role Phone Asher Ridley Primary [...] 06/23/2021 Topiramate Unknown 03/12/2021 Other Reaction(s): Rage 30-APR-2016 06:15:59<$> hallucinations Medications No known medications Active Problems No known active problems Encounters Date Type Department Care Team Description 02/20/2025 2:07 PM EDT - 02/20/2025 4:25 PM EDT Emergency [facility] Emergency [address] [place] [address] Acute cystitis with hematuria (Primary Dx) Discharge Disposition: Home or Self Care from Last 3 Months Surgical History Surgery Date Site/Laterality Comments KIDNEY SURGERY HYSTERECTOMY SECTION APPENDECTOMY HERNIA REPAIR CERVICAL SPINE SURGERY Medical History Medical History Date Comments Kidney infection Sepsis ([facility] V24, [facility] V28) Social History Tobacco Use Types Packs/Day Years Used Date Smoking Tobacco: Every Day Cigarettes Smokeless Tobacco: Former Tobacco Cessation:Ready to Q uit: Not Asked; Counseling Given: Not Answered Alcohol Use Standard Drinks/Week Comments Never 0 (1 standard drink = 0.6 oz pur e alcohol) Comments Unknown Sex and Gender Information Value Date Recorded Sex Assigned at Not on file Legal Sex Female 4:48 PM EST Gender Identity Not on file Sexual Orientation Not on file Obstetrics History Last Filed Vital Signs Vital Sign Reading Time Taken Comments Blood Pressure 128/89 02/20/2025 12:00 PM EDT Pulse 104 02/20/2025 12:00 PM EDT Temperature 36.3 C (97.4 F) 02/20/2025 12:00 PM EDT Respiratory Rate 18 02/20/2025 12:00 PM EDT Oxygen Saturation 100% 02/20/2025 12:00 PM EDT Inhaled Oxygen Concentration - - Weight 54.4 kg (120 lb) 02/20/2025 12:00 PM EDT Height 157.5 cm (5' 2 ) 02/20/2025 12:00 PM EDT Body Mass Index 21.95 02/20/2025 12:00 PM EDT Plan of Treatment Health Maintenance Due Date Last Done Comments Breast Cancer Screening 1980 IPV Vaccines (2 of 3 - 4-dose series) 1980 1980 Diabetes: Annual Foot Exam 1990 Diabetes: Annual Retina Eye Exam 1990 Cervical Cancer Screening: Pap Smear 2001 HPV Vaccines (1 - 3-dose SCDM series) 2007 Pneumococcal Vaccine: Pediatrics (0 to 5 Years) and At-Risk Patients (6 to 49 Years) (2 of 2 - PCV) 12/18/2014 12/18/2013 Hepatitis B Vaccines (2 of 3 - 19+ 3-dose series) 06/21/2019 05/24/2019 Cholesterol Screening (Lipid Panel) 06/15/2022 HIV Screening 06/15/2022 Hepatitis C Screening 06/15/2022 Social Influencers of Health Screening 06/15/2022 Diabetes: Annual Urine Albumin-Creatinine Ratio (uACR) 07/13/2024 Diabetes: Blood Sugar Control Test (HGBA1C) 07/13/2024 Depression Screening 07/17/2024 DTaP,Tdap,and Td Vaccines (2 - Td or Tdap) 02/19/2025 02/19/2015 COVID-19 Vaccine (3 - season) 2025 11/29/2020, 11/08/2020 Influenza Vaccine (#1) 2025 , 05/23/2020, 08/20/2017, Additional history exists Diabetes: Annual GFR (Glomerular Filtration Rate) 02/20/2026 02/20/2025, 07/13/2024 RSV Immunization Adult Patients (1 - 1-dose 75+ series) 2055 HIB Vaccines Aged Out No longer eligi [...] age to complete this topic Meningococcal B Vaccine Aged Out No l onger eligible based on patient's age to complete this topic RSV Immunization Patients Under 20 months Aged Out No longer eligible based on patient's age to complete this topic Varicella Vaccines Aged Out No longer eligible based on patient's age to complete this topic Procedures Procedure Name Priority Date/Time Associated Diagnosis Comments CT ABDOMEN PELVIS WO CONTRAST STAT 02/20/2025 2:36 PM EDT POC , URINE DIAGNOSTIC STAT 02/20/2025 12:38 PM EDT HUTTON URINE CULTURE TUBE STAT 02/20/2025 12:33 PM EDT URINALYSIS WITH REFLEX MICROSCOPIC AND CULTURE STAT 02/20/2025 12:33 PM EDT URINALYSIS WITH REFLEX MICROSCOPIC AND CULTURE STAT 02/20/2025 12:33 PM EDT CULTURE URINE STAT 02/20/2025 12:33 PM EDT RBC MORPHOLOGY REVIEW STAT 02/20/2025 12:32 PM EDT CBC WITH AUTO DIFFERENTIAL STAT 02/20/2025 12:32 PM EDT COMPREHENSIVE METABOLIC PANEL STAT 02/20/2025 12:32 PM EDT CBC AND DIFFERENTIAL STAT 02/20/2025 12:32 PM EDT from Last 3 Months Results * CT Abdomen Pelvis wo Contrast (02/20/2025 2:36 PM EDT) Anatomical Region Laterality Modality Body Computed Tomogra phy 02/20/2025 3:05 PM EDT Impressions 02/20/2025 3:16 PM EDT Thickening of the bladder, correlate with urinalysis. Otherwise no acute infectious inflammatory processes in the abdomen or pelvis. -------- FINAL REPORT -------- Dictated By: Yoly Chatman Dictated Date: 02/20/2025 15:05 ET Assigned Physician: Yoly Chatman Reviewed and Electronically Signed By: Yoly Chatman Signed Date: 02/20/2025 15:16 ET Workstation ID: [id number] Transcribed By: Self Edit Transcribed Date: 02/20/2025 15:05 ET Narrative 02/20/2025 3:16 PM EDT PROCEDURE: CT Abdomen and Pelvis without contrast INDICATION: Hematuria, unknown cause ?pyelo TECHNIQUE: CT of the abdomen and pelvis without contrast. Multiplanar reformats. The examination was performed utilizing dose reduction techniques. DLP: 341 mGy/cm COMPARISON: No priors available. FINDINGS: LOWER THORAX: Lung bases are clear. HEPATOBILIARY: No focal liver lesions. Sludge in the gallbladder. SPLEEN: No splenomegaly. PANCREAS: No focal mass or ductal dilatation. ADRENALS: No nodules. KIDNEYS/URETERS: No hydronephrosis, stones, or solid mass. PELVIC ORGANS/BLADDER: Significant thickening of the urinary bladder. Correlate with urinalysis. Hysterectomy. Trace pelvic fluid. PERITONEUM / RETROPERITONEUM: Reactive retroperitoneal nodes. VESSELS: No aneurysm. GI TRACT: No bowel distention or wall thickening. Post surgical changes right lower quadrant. BONES AND SOFT TISSUES: Scattered degenerative changes seen throughout the bones. A right groin hernia repair. scarring. Procedure Note Yoly Chatman MD - 02/20/2025 PROCEDURE: CT Abdomen and Pelvis without contrast INDICATION: Hematuria, unknown cause ?pyelo TECHNIQUE: CT of the abdomen and pelvis without contrast. Multiplanarreformats. The examination was performed utilizing dose reductiontechniques. DLP: 341 mGy/cm COMPARISON: No priors available. FINDINGS: LOWER THORAX: Lung bases are clear. HEPATOBILIARY: No focal liver lesions. Sludge in the gallbladder. SPLEEN: No splenomegaly. PANCREAS: No focal mass or ductal dilatation. ADRENALS: No nodules. KIDNEYS/URETERS: No hydronephrosis, stones, or solid mass. PELVIC ORGANS/BLADDER: Significant thickening of the urinary bladder.Correlate with urinalysis. Hysterectomy. Trace pelvic fluid. PERITONEUM / RETROPERITONEUM: Reactive retroperitoneal nodes. VESSELS: No aneurysm. GI TRACT: No bowel distention or wall thickening. Post surgical changesright lower quadrant. BONES AND SOFT TISSUES: Scattered degenerative changes seen throughout thebones. A right groin hernia repair. scarring. IMPRESSION: Thickening of the bladder, correlate with urinalysis. Otherwise no acuteinfectious inflammatory processes in the abdomen or pelvis. -------- FINAL REPORT -------- Dictated By: Yoly Chatman Dictated Date: 02/20/2025 15:05 ET Assigned Physician: Yoly Chatman Reviewed and Electronically Signed By: Yoly Chatman Signed Date: 02/20/2025 15:16 ET Workstation ID: [id number] Transcribed By: Self Edit Transcribed Date: 02/20/2025 15:05 ET Ally Foy NP IMG CT PROCEDURES Final Result * POC , urine manually resulted (02/20/2025 12:38 PM EDT) HCG, Ur POC Negative Negative POC hCG Int QC Pass? Yes Yes EXPIRATION DATE POC [id number] LOT NUMBER POC 192269 Urine Urine specimen obtained by clean catch procedure / Unknown 02/20/2025 12:38 PM EDT us Jorge uDran MD POINT OF CARE TEST ENTER/ED IT ORDERABLES Final Result * (ABNORMAL) Urinalysis with reflex microscopic and culture (02/20/2025 12:33 PM EDT) Specific [place] Urine 1.014 1.003 - 1.030 LAB URINALYSIS - AUTOMATED METHOD 02/20/2025 1:15 PM [facility] pH, Urine 6.0 5.0 - 8.0 pH LAB URINALYSIS - AUTOMATED METHOD 02/20/2025 1:15 PM [facility] Leukocytes, Urine Large(A) Negative LAB URINALYSIS - AUTOMATED METHOD 02/20/2025 1:15 PM [facility] Nitrite, Urine Positive(A) Negative LAB URINALYSIS - AUTOMATED METHOD 02/20/2025 1:15 PM [facility] Protein, Urine 100(A) <=Trace mg/dL LAB URINALYSIS - AUTOMATED METHOD 02/20/2025 1:15 PM [facility] Glucose, Urine Negative Negative mg/dL LAB URINALYSIS - AUTOMATED METHOD 02/20/2025 1:15 PM [facility] Ketones, Urine Trace(A) Negative mg/dL LAB URINALYSIS - AUTOMATED METHOD 02/20/2025 1:15 PM [facility] Urobilinogen , Urine 1.0 0.2 - 1.0 mg/dL LAB URINALYSIS - AUTOMATED METHOD 02/20/2025 1:15 PM [facility] Bilirubin, Urine Negative Negative LAB URINALYSIS - AUTOMATED METHOD 02/20/2025 1:15 PM [facility] Blood, Urine Large(A) Negative LAB URINALYSIS - AUTOMATED METHOD 02/20/2025 1:15 PM [facility] RBC, Urine 112.7(H) 0 - 4 /HPF LAB URINALYSIS - AUTOMATED METHOD 02/20/2025 1:15 PM EDT [facility] WBC, Urine 780.8(H) 0 - 4 /HPF LAB URINALYSIS - AUTOMATED METHOD 02/20/2025 1:15 PM EDT [facility] Squamous Epithelial, Urine 69(H) 0 - 60 /LPF LAB URINALYSIS - AUTOMATED METHOD 02/20/2025 1:15 PM EDT [facility] Bacteria, Urine Many(A) Negative /HPF LAB URINALYSIS - AUTOMATED METHOD 02/20/2025 1:15 PM EDT [facility] Hyaline Casts, Urine 2.9 0 - 3 /LPF LAB URINALYSIS - AUTOMATED METHOD 02/20/2025 1:15 PM EDT [facility] Urine Urine specimen obtained by clean catch procedure / Unknown Non-blood Collection / Unknown 02/20/2025 12:33 PM EDT 02/20/2025 1:02 PM EDT Jorge Duran MD LAB URINE ORDERABLES Final Result [facility] [address] [place] [address], [place] [phone] * [place] urine culture tube (02/20/2025 12:33 PM EDT) Extra Tube Hold for add-ons. 02/20/2025 3:01 PM EDT [facility] Comment:Auto resulted. Urine Urine specimen obtained by clean catch procedure / Unknown Non-blood Collection / Unknown 02/20/2025 12:33 PM EDT 02/20/2025 1:02 PM EDT Jorge Duran MD LAB URINE ORDERABLES Final Result Performing Organization Address City/[facility]/ZIP Co de Phone Number [facility] [address] [place] [address], [place] [phone] * (ABNORMAL) Culture urine (02/20/2025 12:33 PM EDT) Culture, Urine >=100,000 CFU/mL Escherichia coli(A) CHRISTIANO 02/22/2025 10:19 AM EDT [facility] Urine Urine specimen obtained by clean catch procedure / Unknown Non-blood Collection / Unknown 02/20/2025 12:33 PM EDT 02/20/2025 1:15 PM EDT Narrative Organism Antibiotic Method Susceptibility Escherichia [...] Escherichia coli Trimethoprim/Sulfamethoxazole CHRISTIANO 160 ug/ml: Resistant Jorge Duran MD LAB MICROBIOLOGY - GENERAL ORDERABLES Final Result [facility] [address] [place] [address], [place] [phone] * (ABNORMAL) RBC morphology review (02/20/2025 12:32 PM EDT) Rbc Morphology Consistent with indices Consistent with indices, Normal for LAB HEMETOLOGY METHOD 02/20/2025 1:24 PM EDT [facility] Platelet Morphology - WAM See Note(A) Normal LAB HEMETOLOGY METHOD 02/20/2025 1:24 PM EDT [facility] Comment:PLT: Normal Blood Venous blood specimen / Unknown Venipuncture / Unknown 02/20/2025 12:32 PM EDT 02/20/2025 12:46 PM EDT Jorge Duran MD LAB BLOOD ORDERABLES Final Result [facility] [address] [place] [address], [place] [phone] * (ABNORMAL) CBC auto differential (02/20/2025 12:32 PM EDT) WBC 10.1 4.8 - 10.8 K/mcL LAB HEMETOLOGY METHOD 02/20/2025 1:24 PM EDT [facility] RBC 4.30 3.80 - 4.80 M/mcL LAB HEMETOLOGY METHOD 02/20/2025 1:24 PM EDT [facility] Hemoglobin 12.3 11.5 - 16.0 g/dL LAB HEMETOLOGY METHOD 02/20/2025 1:24 PM EDT [facility] Hematocrit 36.2 35.0 - 47.0 % LAB HEMETOLOGY METHOD 02/20/2025 1:24 PM EDT [facility] MCV 84.8 79.0 - 98.0 FL LAB HEMETOLOGY METHOD 02/20/2025 1:24 PM EDT [facility] MCH 28.8 27.0 - 32.0 pcg LAB HEMETOLOGY METHOD 02/20/2025 1:24 PM EDT [facility] MCHC 34.0 32.0 - 37.0 g/dL LAB HEMETOLOGY METHOD 02/20/2025 1:24 PM EDT [facility] RDW 13.3 11.0 - 15.0 % LAB HEMETOLOGY METHOD 02/20/2025 1:24 PM EDT [facility] Platelets 351 130 - 400 K/mcL LAB HEMETOLOGY METHOD 02/20/2025 1:24 PM [facility] MPV 10.2 7.0 - 11.0 FL LAB HEMETOLOGY METHOD [facility]/20[facility]25 [facility] NRBC 0.0 <1.0 % LAB HEMETOLOGY METHOD 02/20/2025 1:24 PM EDT [facility] NRBC Absolute 0.00 <0.10 K/mcL LAB HEMETOLOGY METHOD 02/20/2025 1:24 PM [facility] Neutrophils Relative 71.6 % LAB HEMETOLOGY METHOD 02/20/2025 1:24 PM EDT [facility] Comment:This is an appended report. These results have been appended to a previously preliminary verified report. Lymphocytes Relative 22.5 % LAB HEMETOLOGY METHOD 02/20/2025 1:24 PM EDT [facility] Comment:This is an appended report. These results have been appended to a previously preliminary verified report. Monocytes Relative 4.6 % LAB HEMETOLOGY METHOD 02/20/2025 1:24 PM EDT [facility] Comment:This is an appended report. These results have been appended to a previously preliminary verified report. Eosinophils Relative 0.4 % LAB HEMETOLOGY METHOD 02/20/2025 1:24 PM EDT [facility] Comment:This is an appended report. These results have been appended to a previously preliminary verified report. Basophils Relative 0.6 % LAB HEMETOLOGY METHOD 02/20/2025 1:24 PM EDT [facility] Comment:This is an appended report. These results have been appended to a previously preliminary verified report. Immature Granulocytes Relative 0.3 % LAB HEMETOLOGY METHOD 02/20/2025 1:24 PM EDT [facility] Comment:This is an appended report. These results have been appended to a previously preliminary verified report. Neutrophils Absolute 7.25(H) 1.50 - 7.00 K/mcL LAB HEMETOLOGY METHOD 02/20/2025 1:24 PM EDT [facility] Comment:This is an appended report. These results have been appended to a previously preliminary verified report. Lymphocytes Absolute 2.28 1.00 - 5.00 K/mcL LAB HEMETOLOGY METHOD 02/20/2025 1:24 PM EDT [facility] Comment:This is an appended report. These results have been appended to a previously preliminary verified report. Monocytes Absolute 0.47 0.20 - 1.00 K/mcL LAB HEMETOLOGY METHOD 02/20/2025 1:24 PM T [facility] Comment:This is an appended report. These results have been appended to a previously preliminary verified report. Eosinophils Absolute 0.04 0.00 - 0.50 K/mcL LAB HEMETOLOGY METHOD 02/20/2025 1:24 PM EDT [facility] Comment:This is an appended report. These results have been appended to a previously preliminary verified report. Basophils Absolute 0.06 0.00 - 0.20 K/mcL LAB HEMETOLOGY METHOD 02/20/2025 1:24 PM EDT [facility] Comment:This is an appended report. These results have been appended to a previously preliminary verified report. Immature Granulocytes Absolute 0.03 0.00 - 0.03 K/mcL LAB HEMETOLOGY METHOD 02/20/2025 1:24 PM EDT [facility] Comment:This is an appended report. These results have been appended to a previously preliminary verified report. Blood Venous blood specimen / Unknown Venipuncture / Unknown 02/20/2025 12:32 PM EDT 02/20/2025 12:46 PM EDT us Jorge Duran MD LAB BLOOD ORDERABLES Final Result [facility] [address] [place] [address], * (ABNORMAL) Comprehensive metabolic panel (02/20/2025 12:32 PM EDT) Sodium 136 133 - 145 mmol/L LAB CHEMISTRY METHOD 02/20/2025 1:20 PM EDT [facility] Potassium 3.7 3.5 - 5.5 mmol/L LAB CHEMISTRY METHOD 02/20/2025 1:20 PM [facility] Chloride 101 96 - 110 mmol/L LAB CHEMISTRY METHOD 02/20/2025 1:20 PM [facility] CO2 31 21 - 32 mmol/L LAB CHEMISTRY METHOD 02/20/2025 1:20 PM [facility] Anion Gap 4 3 - 11 LAB CHEMISTRY METHOD 02/20/2025 1:20 PM [facility] Glucose 211(H) 70 - 100 mg/dL LAB CHEMISTRY METHOD 02/20/2025 1:20 PM [facility] BUN 6 5 - 25 mg/dL LAB CHEMISTRY METHOD 02/20/2025 1:20 PM [facility] Creatinine 0.82 0.50 - 1.10 mg/dL LAB CHEMISTRY METHOD 02/20[facility]2025 [facility] eGFR 91 >=60 mL/min/1. 73m2 LAB CHEMISTRY METHOD 02/20/2025 1:20 PM [facility] Comment:Calculation based on the Chronic Kidney Disease Epidemiology Collaboration (CKD-EPI) equation refit without adjustment for race. BUN/Creatinine Ratio 7.3 LAB CHEMISTRY METHOD 02/20/2025 1:20 PM [facility] Calcium 9.1 8.5 - 10.5 mg/dL LAB CHEMISTRY METHOD 02/20/2025 1:20 PM [facility] AST (SGOT) 18 10 - 42 unit/L LAB CHEMISTRY METHOD 02/20/2025 1:20 PM EDT [facility] ALT (SGPT) 23 10 - 60 unit/L LAB CHEMISTRY METHOD 02/20/2025 1:20 PM EDT [facility] Alkaline Phosphatase 119 42 - 121 unit/L LAB CHEMISTRY METHOD 02/20/2025 1:20 PM EDT [facility] Total Protein 7.8 6.0 - 8.0 g/dL LAB CHEMISTRY METHOD 02/20/2025 1:20 PM EDT [facility] Albumin 3.3 3.2 - 5.0 g/dL LAB CHEMISTRY METHOD 02/20/2025 1:20 PM EDT [facility] Total Bilirubin 0.5 0.0 - 1.4 mg/dL LAB CHEMISTRY METHOD 02/20/2025 1:20 PM EDT [facility] Blood Venous blood specimen / Unknown Venipuncture / Unknown 02/20/2025 12:32 PM EDT 02/20/2025 12:46 PM EDT us Jorge Duran MD LAB BLOOD ORDERABLES Final Result [facility] [address] [place] [address], from Last 3 Months Insurance [facility] Advance Directives Documents on File Type Date Recorded Patient Statistics Tutor Expl anation Health Care Decision (hx) 12/10/2020 [...] (hx) 12/10/2020 AD GARCIA DIRECTIVE Care Teams Automotive Engineering Technician Relationship Specialty Start Date End Date Asher Ridley PA [address] [place] [phone] PCP - General Physician Salesforce Consultant 08/30/24
--- OUTSIDE RECORDS SUMMARY | 2025-05-13 18:13 | XMS_ITS | Encounter Summary ---
Author Organization [facility] [place] [address] Care Team Providers Care Human Factors Specialist Name Role Phone Asher Ridley Primary Care Provider Encounter Details Date Type Department Care Team (Late st Contact Info) Description 10/01/2024 Lab Requisition [facility] Lab [address] [place] [phone] Nitin Steele MD [address] [facility] [address] [place] [address] Other abnormal findings in urine Social History [...] Escherichia coli(A) CHRISTIANO 10/02/2024 8:40 AM EDT [facility] Other Urine specimen from urethra [...] MICROBIOLOGY - G ENERAL ORDERABLES Final Result [facility] [address] [place] [address], documented in this encounter Visit Diagnoses Diagnosis Other abnormal findings in urine documented in this encounter Care Teams Human Factors Specialist Relationship Specialty Start Date End Date Asher Ridley PA [address] [place] [phone] PCP - General Physician Sales Special Agent 08/30/24 documented as of this encounter
--- OUTSIDE RECORDS SUMMARY | 2025-05-13 18:13 | XMS_ITS | Encounter Summary ---
Demographics Address [address] [facility] [address] [place] [address] Home Phone Mobile Phone Email Address Email Address Preferred Language en Marital Status Unknown Holiness Affiliation Unknown Race Other Race Ethnic Group Not or Lati no Author Organization [facility] [place] [address] Support Name Relationship Address Phone Zita Chappell Domestic partner [address] [facility] [address] [place] [address] Care Team Providers Care Care Management Assistant Name Role Phone Asher Ridley Primary Care Provider [phone] Encounter Details Date Type Department Care Team (Late st Contact Info) Description 08/14/2024 Lab Requisition [facility] [address] [place] [phone] Kanchan Munoz PA [address] [facility] [address] [place] [address] Dysuria Social History Tobacco Use Types Packs/Day [...] Escherichia coli(A) CHRISTIANO 08/15/2024 8:16 AM EST [facility] Other Urine specimen from urethra [...] MICROBIOLOGY - GENERAL ORDER THEE Final Result [facility] [address] [place] [address], documented in this encounter Visit Diagnoses Diagnosis Dysuria documented in this encounter Care Teams Care Management Assistant Relationship Specialty Start Date End Date Asher Ridley PA [address] [place] [phone] PCP - General Physician Director Of Student Life 08/30/24 documented as of this encounter
== END 2025-05-13 15:31 | disposition home or self-care (01) ==
LOC: HO.HMCH 13:54
PROVIDERS: PCP Physician Assistant; Visit Provider Physician Assistant
DX: M75.102 Unspecified rotator cuff tear or rupture of left shoulder, not specified as traumatic (principal)

== ENCOUNTER → 2025-05-13 13:53 | Outpatient (BNVA) | payer OTHER, SELFPAY | PROVIDERS: PCP Physician Assistant; Visit Provider Physician Assistant | DX: M25.512 Pain in left shoulder (principal); M75.102 Unspecified rotator cuff tear or rupture of left shoulder, not specified as traumatic | CPT/HCPCS: 99212 ==